=== PATIENT | male | born 1945 | race Caucasian/White ===

== ENCOUNTER → 2019-06-07 | Outpatient (CLI) | payer MEDICARE, BC ==
[2019-06-07 13:37] LABS: Albumin 4.2 g/dL (3.5-5.0); Calcium 9.3 mg/dL (8.4-10.2); Potassium 4.9 mmol/L (3.5-5.1); Total Bilirubin 0.6 mg/dL (0.2-1.3); Total Protein 7.9 g/dL (6.3-8.2)
--- NOTE | 2019-06-07 14:54 | CT ---
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 Contrast enhanced CT of the neck was performed from the skull base through the lung apices. AIRWAY: The supraglottic, glottic, and subglottic portions of the airway appear patent and free of mass. SALIVARY GLANDS: The submandibular and parotid glands are free of mass or inflammatory process. THYROID GLAND: No nodules or masses seen. LYMPH NODES: No adenopathy seen greater than 1cm. LUNG APICES: No nodule or mass is seen. OTHER: There is a skin lesion noted measuring 1.2 cm x .85 x 2.2 cm left facial region adjacent to th e upper pole of the parotid. There is subcutaneous extension without involvement of the parotid gland at this time. Vascular structures are patent. No significant degenerative change of the cervical sp ine. No abscess seen. IMPRESSION: There is a skin lesion noted measuring 1.2 cm x .85 x 2.2 cm left facial region adjacent to the upper pole of the parotid. There is subcutaneous extension without involvement of the parotid gland at thi s time. No additional lesions or adenopathy appreciated within the neck. EXAMINATION TYPE: CT neck chest w con DATE OF EXAM: 06/07/2019 COMPARISON: HISTORY: Malignant melanoma of unspecified part of face (right ear/left face) CT DLP: 1902 mGycm Automated exposure control for dose reduction was used. CONTRAST: CT scan of the chest is performed with IV Contrast, patient injected with 100 mL of Isovue 300. FINDINGS: LUNGS: The lungs are grossly clear, there is no concerning parenchymal mass or nodule identified. T here is no pleural effusion or pneumothorax seen. The tracheobronchial tree is patent. MEDIASTINUM: There are no greater than 1 cm hilar or mediastinal lymph nodes. No pericardial effusi on is seen. Thoracic aorta is of normal caliber. The heart is not enlarged. UPPER ABDOMEN: No significant abnormality appreciated. OTHER: No additional significant abnormality is seen. IMPRESSION: No evidence for metastatic disease to the chest.
== END | disposition home or self-care (01) ==
LOC: RADCTMAIN 12:41
PROVIDERS: ATTEND Otolaryngology Facial Plastic Surgery
DX: C43.39 Malignant melanoma of other parts of face (principal)
CPT/HCPCS: 80053; 70491; 71260; 36415; Q9967

== ENCOUNTER → 2019-06-30 | Outpatient (CLI) | payer MEDICARE, BC ==
--- NOTE | 2019-06-30 14:06 | CT ---
EXAMINATION TYPE: CT abdomen pelvis w con DATE OF EXAM: 06/30/2019 COMPARISON: None HISTORY: Melanoma of Lt cheek CT DLP: 2370.8 mGycm Automated exposure control for dose reduction was used. CONTRAST: CT scan of the abdomen pelvis is performed with IV Contrast, patient injected with 100 mL of Isovue 3 00. FINDINGS- LUNG BASES-linear changes at the lung bases most typical of scar or atelectasis. Coronary artery calc ification noted. LIVER/GB-there are multiple sub-5 mm hypodensities within the liver which are too small to characteri ze but most likely on the basis of simple cysts.. PANCREAS- No gross abnormality is seen. SPLEEN- No gross abnormality is seen. ADRENALS- No gross abnormality is seen. KIDNEYS/BLADDER- no hydronephrosis or nephrolithiasis. Simple appearing left renal cyst noted. BOWEL-there is an area of abnormal wall thickening involving the right colon near the hepatic flexure with surrounding pericolonic mild inflammatory change. Although this could represent a mild colitis could not exclude a mucosal lesion or mass. Recommend correlation with colonoscopy as clinically ervin anted. Report called to referring clinician and report faxed to referring office. LYMPH NODES- No greater than 1cm abdominal or pelvic lymph nodes areappreciated. OSSEOUS STRUCTURES-hypertrophic and degenerative changes of the spine. Sclerosis involving the left i liac bone near the SI joint likely related related to the SI joint arthropathy.. OTHER- prostate is enlarged. Aorta of normal caliber. Atherosclerotic change of the vasculature. IMPRESSION- 1. There is a area of wall thickening involving the right colon near the hepatic flexure with mild hanley rrounding inflammatory change in the pericolonic fat. This could represent a mild colitis. No definit e diverticula identified in the region. A colonic mass also in the differential diagnosis given the s hort segmental involvement. Correlate clinically and with direct visualization as clinically warrante d. 2. No evidence of pathologic adenopathy. 3. Multiple tiny hypodensities within the liver are too small to characterize but likely related to s imple cysts. 4. Prostate hypertrophy 5. Coronary artery atherosclerotic changes correlate clinically.
== END | disposition home or self-care (01) ==
LOC: RADCTMAIN 11:39
PROVIDERS: ATTEND Otolaryngology Facial Plastic Surgery
DX: N40.0 Benign prostatic hyperplasia without lower urinary tract symptoms (principal); C43.39 Malignant melanoma of other parts of face; C77.9 Secondary and unspecified malignant neoplasm of lymph node, unspecified; R93.3 Abnormal findings on diagnostic imaging of other parts of digestive tract; R93.2 Abnormal findings on diagnostic imaging of liver and biliary tract; R19.09 Other intra-abdominal and pelvic swelling, mass and lump
CPT/HCPCS: 82565; 84520; 74177; 36415; Q9967 ×2

== ENCOUNTER → 2019-07-01 | Outpatient (CLI) | payer MEDICARE, BC ==
--- NOTE | 2019-07-01 13:55 | MR ---
EXAMINATION TYPE: MR brain wo/w con DATE OF EXAM: 07/01/2019 COMPARISON: NONE HISTORY: Neoplasm, lt facial and rt ear TECHNIQUE: Multiplanar, multisequence images of the brain and brainstem is performed without and with IV contras t, utilizing 10 mL intravenous Gadavist . FINDINGS: Patient motion limits examination. Diffusion weighted images demonstrate no evidence of a r ecent infarct or other diffusion abnormality. There are few scattered foci of T2/FLAIR hyperintensity in the periventricular and subcortical white matter most commonly on the basis of chronic microangio ioana. As is mild burden for the patient's age. There is no extra-axial fluid . The ventricular syst em and cisternal spaces are symmetrically prominent compatible with age-related volume loss. Midline structures demonstrate normal morphology. The craniocervical junction appears within normal limits. Post contrast images demonstrate no abnormal enhancement. The dural venous sinuses appear pa tent. The visualized sinuses are clear and the globes are intact. IMPRESSION: 1. No acute infarct, midline shift or mass effect. No abnormal intracranial enhancement. 2. Mild burden nonspecific white matter change, likely on the basis of chronic microangiopathy and mi ld age-related volume loss.
== END | disposition home or self-care (01) ==
LOC: RADMRIMAIN 12:07
PROVIDERS: ATTEND Otolaryngology Facial Plastic Surgery
DX: R90.89 Other abnormal findings on diagnostic imaging of central nervous system (principal); G31.1 Senile degeneration of brain, not elsewhere classified; C43.39 Malignant melanoma of other parts of face
CPT/HCPCS: 70553; A9585

== ENCOUNTER 2019-07-15 08:20 | Inpatient (IN) | payer MEDICARE, BC ==
[~2019-07-15 08:20] MED LIST: HYDROmorphone 0.5 MG/0.5 ML SYRINGE IVP PRN; LIDOCAINE 1% (10MG/ML) FOR IV START INTRADERMA PRN
[2019-07-15] MEDS: LACTATED RINGERS 1,000 ML IV SCH ×2 (08:50→12:13)
[2019-07-15 08:52] LABS: Glucose,Whole Blood 231 mg/dL (75-99)
[2019-07-15] MEDS ORDERED: PROPOFOL 10 MG/ML 20 ML VIAL IV ONE (09:22)
--- NOTE | 2019-07-15 09:23 | P.GSHP ---
History of Present Illness H&P Date: 07/15/19 Chief Complaint: Right colon mass This a 73-year-old male who is undergoing colonoscopy for right colon mass. Patient recent CAT scan which was suspicious lesion near the hepatic flexure. Past Medical History Past Medical History: Cancer, CVA/TIA, Hearing Disorder / Deafness, Hypertension Additional Past Medical History / Comment(s): MELENOMA, "BLOOD CANCER" History of Any Multi-Drug Resistant Organisms: None Reported Past Surgical History: Cholecystectomy, Joint Replacement Additional Past Surgical History / Comment(s): MELENOMA FROM RIGHT EAR AND LEFT CHEEK, RIGHT AND LEFT TOTAL KNEE, BILATERAL CATARACT WITH IMPLANTS Past Anesthesia/Blood Transfusion Reactions: No Reported Reaction Smoking Status: Never smoker - Past Family History Mother Family Medical History: Cancer Medications and Allergies Home Medications Medication Instructions Recorded Confirmed Type Aspirin 81 mg PO DAILY 07/14/19 07/15/19 History Lisinopril [Zestril] 40 mg PO DAILY 07/14/19 07/15/19 History QUEtiapine FUMARATE 50 mg PO HS 07/14/19 07/15/19 History amLODIPine [Norvasc] 5 mg PO DAILY 07/14/19 07/15/19 History glyBURIDE [Diabeta] 10 mg PO AC-BID 07/14/19 07/15/19 History metFORMIN HCL 1,000 mg PO BID 07/14/19 07/15/19 History sitaGLIPtin [Januvia] 100 mg PO DAILY 07/14/19 07/15/19 History Allergies Allergy/AdvReac Type Severity Reaction Status Date / Time No Known Allergies Allergy Verified 07/15/19 08:39 Surgical - Exam Vital Signs Temp Pulse Resp BP Pulse Ox 96.7 F L 98 16 126/68 94 L 07/15/19 08:40 07/15/19 08:40 07/15/19 08:40 07/15/19 08:40 07/15/19 08:40 - General well developed, well nourished - Eyes PERRL - ENT normal pinna - Neck no masses - Respiratory normal expansion - Cardiovascular Rhythm: regular - Abdomen Abdomen: soft, non tender Results - Labs Abnormal Lab Results - Last 24 Hours (Table) 07/15/19 Range/Units 08:44 POC Glucose (mg/dL) 231 H (75-99) mg/dL Assessment and Plan Assessment: Right colon mass. We'll perform colonoscopy
--- NOTE | 2019-07-15 09:42 | P.OP ---
Date of Procedure: 07/15/19 Preoperative Diagnosis: Right colon mass Postoperative Diagnosis: Partial obstructing tumor at hepatic flexure Procedure(s) Performed: Colonoscopy Anesthesia: MAC Surgeon: Jeremy Hernandez Pathology: other (Hepatic flexure) Condition: stable Disposition: PACU Description of Procedure: The patient's placed on the endoscopy table in the lateral position. He received IV sedation. Digital rectal exam was performed. The flexible colonoscope was then placed patient anus and passed throughout the entire colon. The ileocecal valve sutures. Cecum appeared normal. There is a few scattered diverticula in the right colon. At the level hepatic flexure there was a obvious colon tumor. Patient had a very hard mass was partially obstructing the lumen of the colon. The mass was hemorrhagic and was biopsied with the cold forcep. Scope was withdrawn remainder of the transverse, descending and sigmoid colon appeared normal. The rectum was normal. Scope was brought patient. Hepatic flexure mass. Patient will be scheduled for right colectomy
[2019-07-15] MEDS ORDERED: LACTATED RINGERS 1,000 ML IV ONE (10:00)
[2019-07-15] MEDS ORDERED: NALOXONE 0.4 MG/ML 1 ML VIAL IV PRN (10:00)
[2019-07-15 11:38] LABS: Glucose,Whole Blood 206 mg/dL (75-99)
--- NOTE | 2019-07-15 11:58 | P.CONS ---
History of Present Illness - Reason for Consult Preoperative clearance, recommendations regarding diabetic medications - History of Present Illness Patient is a pleasant 72-year-old gentleman came in for elective colonoscopy found to have a cancerous mass the hepatic flexure patient will undergo colectomy tomorrow. Patient denied any fever chills nausea vomiting patient denied any smoking history patient does have history of other cancers including melanoma in the past patient denied any chest pain patient denied any history of heart failure or coronary artery disease. Obtaining an EKG for preoperative clearance. Review of Systems REVIEW OF SYSTEMS: CONSTITUTIONAL: No fever, no malaise, no fatigue. HEENT: No recent visual problems or hearing problems. Denied any sore throat. CARDIOVASCULAR: No chest pain, orthopnea, PND, no palpitations, no syncope. PULMONARY: No shortness of breath, no cough, no hemoptysis. GASTROINTESTINAL: No diarrhea, no nausea, no vomiting, no abdominal pain. NEUROLOGICAL: No headaches, no weakness, no numbness. HEMATOLOGICAL: Denies any bleeding or petechiae. GENITOURINARY: Denies any burning micturition, frequency, or urgency. MUSCULOSKELETAL/RHEUMATOLOGICAL: Denies any joint pain, swelling, or any muscle pain. ENDOCRINE: Denies any polyuria or polydipsia. The rest of the 14-point review of systems is negative. Past Medical History Past Medical History: Cancer, CVA/TIA, Hearing Disorder / Deafness, Hypertension Additional Past Medical History / Comment(s): MELENOMA, "BLOOD CANCER" History of Any Multi-Drug Resistant Organisms: None Reported Past Surgical History: Cholecystectomy, Joint Replacement Additional Past Surgical History / Comment(s): MELENOMA FROM RIGHT EAR AND LEFT CHEEK, RIGHT AND LEFT TOTAL KNEE, BILATERAL CATARACT WITH IMPLANTS Past Anesthesia/Blood Transfusion Reactions: No Reported Reaction Smoking Status: Never smoker - Past Family History Mother Family Medical History: Cancer Medications and Allergies Home Medications Medication Instructions Recorded Confirmed Type Aspirin 81 mg PO DAILY 07/14/19 07/15/19 History Lisinopril [Zestril] 40 mg PO DAILY 07/14/19 07/15/19 History QUEtiapine FUMARATE 50 mg PO HS 07/14/19 07/15/19 History amLODIPine [Norvasc] 5 mg PO DAILY 07/14/19 07/15/19 History glyBURIDE [Diabeta] 10 mg PO AC-BID 07/14/19 07/15/19 History metFORMIN HCL 1,000 mg PO BID 07/14/19 07/15/19 History sitaGLIPtin [Januvia] 100 mg PO DAILY 07/14/19 07/15/19 History Allergies Allergy/AdvReac Type Severity Reaction Status Date / Time No Known Allergies Allergy Verified 07/15/19 08:39 Physical Exam Vitals: Vital Signs Temp Pulse Resp BP Pulse Ox 07/15/19 10:06 97 16 131/73 97 07/15/19 09:45 92 16 93/57 94 L 07/15/19 08:40 96.7 F L 98 16 126/68 94 L Intake and Output 07/14/19 07/15/19 07/15/19 22:59 06:59 14:59 Intake Total 300 Balance 300 Intake: IV 300 Other: Weight 100 kg PHYSICAL EXAMINATION: GENERAL: The patient is alert and oriented x3, not in any acute distress. Well d eveloped, well nourished. HEENT: Pupils are round and equally reacting to light. EOMI. No scleral icterus. No conjunctival pallor. Normocephalic, atraumatic. No pharyngeal erythema. No thyromegaly. CARDIOVASCULAR: S1 and S2 present. No murmurs, rubs, or gallops. PULMONARY: Chest is clear to auscultation, no wheezing or crackles. ABDOMEN: Soft, nontender, nondistended, normoactive bowel sounds. No palpable organomegaly. MUSCULOSKELETAL: No joint swelling or deformity. EXTREMITIES: No cyanosis, clubbing, or pedal edema. NEUROLOGICAL: Gross neurological examination did not reveal any focal deficits. SKIN: No rashes. Results Labs: Abnormal Lab Results - Last 24 Hours (Table) 07/15/19 07/15/19 Range/Units 08:44 11:37 POC Glucose (mg/dL) 231 H 206 H (75-99) mg/dL Assessment and Plan Plan: -Preoperative clearance: Patient is low operative risk for colectomy. Recent benefits were discussed with the patient -Type 2 diabetes mellitus patient's metformin and sulfonylurea will be discontinued rest of the oral hypoglycemic agents will be continued along with sliding scale -Hypertension to prevent perioperative hypotension and hold off on lisinopril although amlodipine will be continued. -TIA in the past -Colonic mass for which patient will undergo colectomy tomorrow -History of melanoma
[2019-07-15] MEDS: INSULIN ASPART (NovoLOG) 100 UNIT/ML VIAL SQ SCH ×3 (12:52→20:25)
[2019-07-15 16:39] LABS: Glucose,Whole Blood 226 mg/dL (75-99)
[2019-07-15 20:20] LABS: Glucose,Whole Blood 259 mg/dL (75-99)
[2019-07-15] MEDS: QUEtiapine 50 MG TAB PO SCH (21:28)
[2019-07-16 07:04] LABS: Glucose,Whole Blood 194 mg/dL (75-99)
[2019-07-16 07:44] LABS: Basophils % (A) 0 %; Eosinophils # (A) 0.1 k/uL (0-0.7); Eosinophils % (A) 1 %; HCT 38.6 % (39.0-53.0); HGB 12.6 gm/dL (13.0-17.5); Lymphocytes # (A) 0.8 k/uL (1.0-4.8); Lymphocytes % (A) 10 %; MCH 28.8 pg (25.0-35.0); MCHC 32.6 g/dL (31.0-37.0); MCV 88.3 fL (80.0-100.0); Mean Platelet Volume 6.8; Monocytes # (A) 0.5 k/uL (0-1.0); Monocytes % (A) 7 %; Neutrophils # (A) 5.9 k/uL (1.3-7.7); Neutrophils % (A) 80 %; Platelet Count 222 k/uL (150-450); RBC 4.37 m/uL (4.30-5.90); RDW 14.5 % (11.5-15.5); WBC 7.3 k/uL (3.8-10.6)
[2019-07-16 07:56] LABS: Albumin 3.8 g/dL (3.5-5.0); Potassium 4.7 mmol/L (3.5-5.1); Total Bilirubin 0.7 mg/dL (0.2-1.3); Total Protein 7.3 g/dL (6.3-8.2)
[2019-07-16] MEDS: INSULIN ASPART (NovoLOG) 100 UNIT/ML VIAL SQ SCH ×4 (08:43→20:29)
[2019-07-16] MEDS ORDERED: LISINOPRIL 20 MG TAB PO SCH (09:00)
[2019-07-16] MEDS: amLODIPine 5 MG TAB PO SCH (09:31)
[2019-07-16] MEDS: ASPIRIN 81 MG PO SCH (09:31)
[2019-07-16] MEDS: LINAGLIPTIN 5 MG TABLET PO SCH (09:31)
[2019-07-16] MEDS ORDERED: IV FLUID CONTINUATION 1,000 ML IV ONE (10:50)
[2019-07-16 11:21] LABS: Glucose,Whole Blood 217 mg/dL (75-99)
[2019-07-16] MEDS ORDERED: INSULIN ASPART (NovoLOG) 100 UNIT/ML VIAL SQ ONE ×2 (11:28→14:46)
--- NOTE | 2019-07-16 11:56 | P.PN ---
Subjective No overnight events patient is clinically doing well patient will undergo colectomy today his blood pressures well controlled. Constitutional: Denied any fatigue denied any fever. Cardio vascular: denied any chest pain, palpitations Gastrointestinal denied any nausea vomiting Pulmonary: Denied any shortness of breath cough Neurologic denied any new focal deficits All inpatient medications were reviewed and appropriate changes in these medications as dictated in the interval history and assessment and plan. Objective - Vital Signs Vital signs: Vital Signs Temp 97.8 F 07/16/19 10:51 Pulse 85 07/16/19 10:51 Resp 18 07/16/19 10:51 BP 120/65 07/16/19 10:51 Pulse Ox 96 07/16/19 10:51 Intake & Output 07/15/19 07/16/19 07/16/19 18:59 06:59 18:59 Intake Total 600 Balance 600 Weight 100 kg Intake: IV 300 Intake, IV Titration 300 Amount Lactated Ringers 1,000 ml 300 @ 100 mls/hr IV .Q10H ONE Rx#:[id number] Other: Voiding Method Toilet # Voids 1 - Exam PHYSICAL EXAMINATION: GENERAL: The patient is alert and oriented x3, not in any acute distress. Well developed, well nourished. HEENT: Pupils are round and equally reacting to light. EOMI. No scleral icterus. No conjunctival pallor. Normocephalic, atraumatic. No pharyngeal erythema. No thyromegaly. CARDIOVASCULAR: S1 and S2 present. No murmurs, rubs, or gallops. PULMONARY: Chest is clear to auscultation, no wheezing or crackles. ABDOMEN: Soft, nontender, nondistended, normoactive bowel sounds. No palpable organomegaly. MUSCULOSKELETAL: No joint swelling or deformity. EXTREMITIES: No cyanosis, clubbing, or pedal edema. NEUROLOGICAL: Gross neurological examination did not reveal any focal deficits. SKIN: No rashes. - Labs CBC & Chem 7: 07/16/19 06:37 07/16/19 06:37 Labs: Abnormal Lab Results - Last 24 Hours (Table) 07/15/19 07/15/19 07/16/19 Range/Units 16:38 20:18 06:37 Hgb 12.6 L (13.0-17.5) gm/dL Hct 38.6 L (39.0-53.0) % Lymphocytes # 0.8 L (1.0-4.8) k/uL Sodium (137-145) mmol/L Glucose (74-99) mg/dL POC Glucose (mg/dL) 226 H 259 H (75-99) mg/dL AST (17-59) U/L 07/16/19 07/16/19 07/16/19 Range/Units 06:37 07:02 11:20 Hgb (13.0-17.5) gm/dL Hct (39.0-53.0) % Lymphocytes # (1.0-4.8) k/uL Sodium 136 L (137-145) mmol/L Glucose 188 H (74-99) mg/dL POC Glucose (mg/dL) 194 H 217 H (75-99) mg/dL AST 15 L (17-59) U/L Assessment and Plan Plan: -Preoperative clearance: Patient is low operative risk for colectomy. Recent benefits were discussed with the patient patient is undergoing colectomy today -Type 2 diabetes mellitus patient's metformin and sulfonylurea will be discontinued rest of the oral hypoglycemic agents will be continued along with sliding scale -Hypertension to prevent perioperative hypotension and hold off on lisinopril although amlodipine will be continued. A she is well-controlled -TIA in the past -Colonic mass for which patient will undergo colectomy tomorrow -History of melanoma
[2019-07-16] MEDS ORDERED: NEOSTIGMINE 1 MG/ML 10 ML VIAL ONE (12:13)
[2019-07-16] MEDS ORDERED: SUCCINYLCHOLINE CHLORIDE 100 MG/5 ML SYR IV ONE (12:13)
[2019-07-16] MEDS ORDERED: LIDOCAINE 1% INJ 10MG/ML (20 ML MDV) ONE (12:13)
[2019-07-16] MEDS ORDERED: MIDAZOLAM 2 MG/2 ML VIAL ONE (12:13)
[2019-07-16] MEDS ORDERED: HYDROmorphone (PF) 1 MG/ML ONE (12:13)
[2019-07-16] MEDS ORDERED: fentaNYL (PF) 50 MCG/ML 2 ML AMP ONE (12:13)
[2019-07-16] MEDS ORDERED: PROPOFOL 10 MG/ML 20 ML VIAL IV ONE (12:13)
[2019-07-16] MEDS ORDERED: ROCURONIUM BROMIDE 10 MG/ML 5 ML VIAL IV ONE (12:13)
[2019-07-16] MEDS ORDERED: GLYCOPYRROLATE 0.2 MG/ML 2 ML VIAL ONE (12:13)
[2019-07-16] MEDS ORDERED: BUPIVACAIN-EPI 0.25%-1:200,000 30 ML VIAL SQ ONE (12:18)
[2019-07-16] MEDS ORDERED: ceFAZolin 1,000 MG VIAL IVPB ONE (12:18)
[2019-07-16] MEDS ORDERED: LACTATED RINGERS 1,000 ML IV ONE (12:50)
[2019-07-16] MEDS ORDERED: ROPIVACAINE 250 MG, fentaNYL (PF) 1,250 MCG in SODIUM CHLORIDE 0.9% 175 ML EPIDURAL PRN (13:10)
[2019-07-16] MEDS ORDERED: NALOXONE 0.4 MG/ML 1 ML VIAL IV PRN (13:10)
--- NOTE | 2019-07-16 13:17 | P.ANPRN ---
Procedure Note - Anesthesia - Epidural/Spinal Epidural Time Out Performed: Yes Date of Procedure: 07/16/19 Procedure Start Time: 11:24 Procedure Stop Time: 11:40 Location of Patient: PreOp Indication: Acute Post-Operative Pain, Requested by Surgeon Sedation Type: Awake Preparation: Sterile Dressing Number of Attempts: 3 Position: Sitting Catheter Depth at Skin (cm): 6 Catheter: Indwelling Needle Guage: 18 Injectate: Other (will test after surgery) Blood Aspirated: No Pain Paresthesia on Injection Noted: No Events: Uneventful and Well Tolerated
[2019-07-16] MEDS ORDERED: METOCLOPRAMIDE 5 MG/ML 2 ML VIAL IVP PRN (13:47)
[2019-07-16 13:53] LABS: Glucose,Whole Blood 228 mg/dL (75-99)
[2019-07-16] MEDS ORDERED: D5-0.45% NACL WITH KCL 20MEQ/L 1,000 ML IV SCH (14:00)
[2019-07-16] MEDS ORDERED: HYDROmorphone 0.5 MG/0.5 ML SYRINGE IVP ONE (14:06)
[2019-07-16] MEDS ORDERED: HYDROmorphone 1 MG/ML 1 ML SYRINGE IVP ONE (14:11)
[2019-07-16] MEDS ORDERED: diphenhydrAMINE 50 MG/ML 1 ML VIAL IVP ONE (14:16)
[2019-07-16] MEDS: LACTATED RINGERS 1,000 ML IV SCH (15:29)
[2019-07-16] MEDS: HEPARIN SODIUM,PORCINE 5,000 UNIT/ML 1 ML VIAL SQ SCH ×2 (15:59→23:52)
[2019-07-16 16:08] LABS: Basophils % (A) 0 %; Eosinophils # (A) 0.1 k/uL (0-0.7); Eosinophils % (A) 0 %; HCT 33.3 % (39.0-53.0); HGB 10.8 gm/dL (13.0-17.5); Lymphocytes # (A) 0.5 k/uL (1.0-4.8); Lymphocytes % (A) 3 %; MCH 29.5 pg (25.0-35.0); MCHC 32.3 g/dL (31.0-37.0); MCV 91.2 fL (80.0-100.0); Mean Platelet Volume 6.9; Monocytes # (A) 0.6 k/uL (0-1.0); Monocytes % (A) 4 %; Neutrophils # (A) 13.8 k/uL (1.3-7.7); Neutrophils % (A) 92 %; Platelet Count 243 k/uL (150-450); RBC 3.66 m/uL (4.30-5.90); RDW 14.5 % (11.5-15.5); WBC 15.1 k/uL (3.8-10.6)
[2019-07-16 16:19] LABS: Calcium 8.3 mg/dL (8.4-10.2); Potassium 4.7 mmol/L (3.5-5.1)
[2019-07-16 17:04] LABS: Glucose,Whole Blood 273 mg/dL (75-99)
[2019-07-16 19:54] LABS: Glucose,Whole Blood 323 mg/dL (75-99)
[2019-07-16] MEDS: FAMOTIDINE 20 MG/2 ML VIAL IV SCH (20:29)
[2019-07-16] MEDS: QUEtiapine 50 MG TAB PO SCH (20:30)
[2019-07-16] MEDS ORDERED: SODIUM CHLORIDE 0.9% 1,000 ML IV SCH (20:30)
[2019-07-17 00:23] LABS: Glucose,Whole Blood 242 mg/dL (75-99)
[2019-07-17 01:36] LABS: HCT 29.9 % (39.0-53.0); MCH 29.9 pg (25.0-35.0); MCHC 33.4 g/dL (31.0-37.0); MCV 89.4 fL (80.0-100.0); Mean Platelet Volume 6.8; Platelet Count 230 k/uL (150-450); RBC 3.35 m/uL (4.30-5.90); RDW 14.5 % (11.5-15.5); WBC 21.2 k/uL (3.8-10.6)
[2019-07-17 07:03] LABS: Glucose,Whole Blood 218 mg/dL (75-99)
[2019-07-17] MEDS ORDERED: LACTATED RINGERS 1,000 ML IV ONE (08:15)
[2019-07-17] MEDS ORDERED: LACTATED RINGERS 1,000 ML IV SCH (08:15)
[2019-07-17] MEDS: FAMOTIDINE 20 MG/2 ML VIAL IV SCH ×2 (08:55→20:20)
[2019-07-17] MEDS: ASPIRIN 81 MG PO SCH (08:55)
[2019-07-17] MEDS: HEPARIN SODIUM,PORCINE 5,000 UNIT/ML 1 ML VIAL SQ SCH ×3 (08:55→23:13)
[2019-07-17] MEDS: INSULIN ASPART (NovoLOG) 100 UNIT/ML VIAL SQ SCH ×4 (08:56→20:19)
[2019-07-17] MEDS: ALVIMOPAN 12 MG CAPSULE PO SCH ×2 (08:56→20:19)
[2019-07-17] MEDS: LINAGLIPTIN 5 MG TABLET PO SCH (08:56)
--- NOTE | 2019-07-17 09:58 | P.PN ---
Progress Note - Text Progress Note Date: 07/17/19 The patient is resting comfortably his bed. He denies any significant pain. He did develop some mild hypotension and decreased urine output overnight. On exam his vital signs are stable. His blood pressures in the 110 range. He has no significant complaints of pain. Abdomen soft. Incision site is clean dry tach. Status post right colectomy for large right colon cancer. Patient's hemoglobin is pending from this morning. His last hemoglobin was 10.0. Patient is receiving fluid bolus this morning. His epidural has been turned off currently. He'll continue have supportive care.
[2019-07-17 11:32] LABS: Glucose,Whole Blood 280 mg/dL (75-99)
[2019-07-17 12:50] LABS: Basophils % (A) 0 %; Eosinophils % (A) 0 %; HCT 29.1 % (39.0-53.0); HGB 9.4 gm/dL (13.0-17.5); Lymphocytes # (A) 0.3 k/uL (1.0-4.8); Lymphocytes % (A) 2 %; MCHC 32.2 g/dL (31.0-37.0); MCV 90.1 fL (80.0-100.0); Mean Platelet Volume 7.4; Monocytes # (A) 0.5 k/uL (0-1.0); Monocytes % (A) 4 %; Neutrophils # (A) 13.4 k/uL (1.3-7.7); Neutrophils % (A) 93 %; Platelet Count 198 k/uL (150-450); RBC 3.23 m/uL (4.30-5.90); RDW 14.5 % (11.5-15.5); WBC 14.4 k/uL (3.8-10.6)
[2019-07-17 12:58] LABS: Albumin 2.7 g/dL (3.5-5.0); Calcium 7.7 mg/dL (8.4-10.2); Potassium 5.2 mmol/L (3.5-5.1); Total Bilirubin 0.7 mg/dL (0.2-1.3); Total Protein 5.6 g/dL (6.3-8.2)
[2019-07-17] MEDS: amLODIPine 5 MG TAB PO SCH (13:12)
--- NOTE | 2019-07-17 14:27 | P.PN ---
Subjective No overnight events patient is clinically doing well patient will undergo colectomy today his blood pressures well controlled. 07/17/2019 Patient is status post right-sided hemicolectomy. Biopsy results are pending. Patient has colon cancer. Patient is bit hypotensive leading to acute renal failure patient is receiving lactated Ringer's which will be changed to normal saline because of hyperkalemia. His blood sugars are elevated as well continue to monitor and patient will be started on long-acting insulin or glyburide. Everything was discontinued because of hypotension leading to acute renal failure Constitutional: Denied any fatigue denied any fever. Cardio vascular: denied any chest pain, palpitations Gastrointestinal denied any nausea vomiting Pulmonary: Denied any shortness of breath cough Neurologic denied any new focal deficits All inpatient medications were reviewed and appropriate changes in these medications as dictated in the interval history and assessment and plan. Objective - Vital Signs Vital signs: Vital Signs Temp 99.9 F H 07/17/19 05:00 Pulse 127 H 07/17/19 13:06 Resp 16 07/17/19 13:06 BP 111/63 07/17/19 13:06 Pulse Ox 97 07/17/19 13:06 Intake & Output 07/16/19 07/17/19 07/17/19 18:59 06:59 18:59 Intake Total 1800 500 500 Output Total 500 200 50 Balance 1300 300 450 Intake: IV 1800 500 500 Sodium Chloride 0.9% 1, 500 500 000 ml @ 100 mls/hr IV . Q10H [facility] Rx#:[id number] Output: Urine 200 200 50 Estimated Blood Loss 300 Other: Voiding Method Indwelling Catheter Indwelling Catheter - Exam PHYSICAL EXAMINATION: GENERAL: The patient is alert and oriented x3, not in any acute distress. Well developed, well nourished. HEENT: Pupils are round and equally reacting to light. EOMI. No scleral icterus. No conjunctival pallor. Normocephalic, atraumatic. No pharyngeal erythema. No thyromegaly. CARDIOVASCULAR: S1 and S2 present. No murmurs, rubs, or gallops. PULMONARY: Chest is clear to auscultation, no wheezing or crackles. ABDOMEN: Soft, nontender, nondistended, normoactive bowel sounds. No palpable organomegaly. MUSCULOSKELETAL: No joint swelling or deformity. EXTREMITIES: No cyanosis, clubbing, or pedal edema. NEUROLOGICAL: Gross neurological examination did not reveal any focal deficits. SKIN: No rashes. - Labs CBC & Chem 7: 07/17/19 12:34 07/17/19 12:34 Labs: Abnormal Lab Results - Last 24 Hours (Table) 07/16/19 07/16/19 07/16/19 Range/Units 15:45 15:45 17:02 WBC 15.1 H (3.8-10.6) k/uL RBC 3.66 L (4.30-5.90) m/uL Hgb 10.8 L (13.0-17.5) gm/dL Hct 33.3 L (39.0-53.0) % Neutrophils # 13.8 H (1.3-7.7) k/uL Lymphocytes # 0.5 L (1.0-4.8) k/uL Sodium 134 L (137-145) mmol/L Potassium (3.5-5.1) mmol/L Creatinine (0.66-1.25) mg/dL Glucose 233 H (74-99) mg/dL POC Glucose (mg/dL) 273 H (75-99) mg/dL Calcium 8.3 L (8.4-10.2) mg/dL Total Protein (6.3-8.2) g/dL Albumin (3.5-5.0) g/dL 07/16/19 07/17/19 07/17/19 Range/Units 19:49 00:22 01:01 WBC 21.2 H (3.8-10.6) k/uL RBC 3.35 L (4.30-5.90) m/uL Hgb 10.0 L (13.0-17.5) gm/dL Hct 29.9 L (39.0-53.0) % Neutrophils # (1.3-7.7) k/uL Lymphocytes # (1.0-4.8) k/uL Sodium (137-145) mmol/L Potassium (3.5-5.1) mmol/L Creatinine (0.66-1.25) mg/dL Glucose (74-99) mg/dL POC Glucose (mg/dL) 323 H 242 H (75-99) mg/dL Calcium (8.4-10.2) mg/dL Total Protein (6.3-8.2) g/dL Albumin (3.5-5.0) g/dL 07/17/19 07/17/19 07/17/19 Range/Units 07:01 11:30 12:34 WBC 14.4 H (3.8-10.6) k/uL RBC 3.23 L (4.30-5.90) m/uL Hgb 9.4 L (13.0-17.5) gm/dL Hct 29.1 L (39.0-53.0) % Neutrophils # 13.4 H (1.3-7.7) k/uL Lymphocytes # 0.3 L (1.0-4.8) k/uL Sodium (137-145) mmol/L Potassium (3.5-5.1) mmol/L Creatinine (0.66-1.25) mg/dL Glucose (74-99) mg/dL POC Glucose (mg/dL) 218 H 280 H (75-99) mg/dL Calcium (8.4-10.2) mg/dL Total Protein (6.3-8.2) g/dL Albumin (3.5-5.0) g/dL 07/17/19 Range/Units 12:34 WBC (3.8-10.6) k/uL RBC (4.30-5.90) m/uL Hgb (13.0-17.5) gm/dL Hct (39.0-53.0) % Neutrophils # (1.3-7.7) k/uL Lymphocytes # (1.0-4.8) k/uL Sodium 136 L (137-145) mmol/L Potassium 5.2 H (3.5-5.1) mmol/L Creatinine 1.84 H (0.66-1.25) mg/dL Glucose 312 H (74-99) mg/dL POC Glucose (mg/dL) (75-99) mg/dL Calcium 7.7 L (8.4-10.2) mg/dL Total Protein 5.6 L (6.3-8.2) g/dL Albumin 2.7 L (3.5-5.0) g/dL Assessment and Plan Plan: --Acute renal failure: Secondary to hypotension and prerenal azotemia from hypotension. Patient will be started on IV normal saline discontinue lactated Ringer's because of hyperkalemia as mentioned above -Hyperkalemia secondary to acute renal failure and lactated Ringer's -Colon cancer status post right colectomy -Type 2 diabetes mellitus uncontrolled blood sugars continue with present regimen along with restarting on glyburide along with sliding scale insulin -Hypertension holding of antidepressant medications seconded to perioperative hypotension which is expected holding off on KRISTA inhibitor as well as amlodipine. -TIA in the past -Colonic mass for which patient will undergo colectomy tomorrow -History of melanoma
[2019-07-17] MEDS: SODIUM CHLORIDE 0.9% 1,000 ML IV SCH ×2 (14:47→20:20)
[2019-07-17 16:52] LABS: Glucose,Whole Blood 364 mg/dL (75-99)
[2019-07-17] MEDS: glipiZIDE 10 MG TAB PO SCH (17:42)
[2019-07-17] MEDS: BENZOCAINE/MENTHOL LOZENG 1 EACH LOZENGE MUCOUS MEM PRN (20:11)
[2019-07-17 20:12] LABS: Glucose,Whole Blood 290 mg/dL (75-99)
[2019-07-17] MEDS: QUEtiapine 50 MG TAB PO SCH (20:19)
[2019-07-18] MEDS: BENZOCAINE/MENTHOL LOZENG 1 EACH LOZENGE MUCOUS MEM PRN (03:33)
[2019-07-18] MEDS: SODIUM CHLORIDE 0.9% 1,000 ML IV SCH ×3 (03:34→20:43)
[2019-07-18] MEDS: ONDANSETRON 4 MG/2 ML VIAL IVP PRN (05:14)
[2019-07-18 06:15] LABS: Basophils % (A) 0 %; Eosinophils % (A) 0 %; HGB 9.9 gm/dL (13.0-17.5); Lymphocytes # (A) 0.2 k/uL (1.0-4.8); Lymphocytes % (A) 1 %; MCH 30.3 pg (25.0-35.0); MCHC 34.2 g/dL (31.0-37.0); MCV 88.6 fL (80.0-100.0); Mean Platelet Volume 6.7; Monocytes # (A) 0.4 k/uL (0-1.0); Monocytes % (A) 3 %; Neutrophils # (A) 12.6 k/uL (1.3-7.7); Neutrophils % (A) 95 %; Platelet Count 216 k/uL (150-450); RBC 3.28 m/uL (4.30-5.90); RDW 14.4 % (11.5-15.5); WBC 13.2 k/uL (3.8-10.6)
[2019-07-18 06:27] LABS: Calcium 8.1 mg/dL (8.4-10.2); Potassium 4.5 mmol/L (3.5-5.1)
[2019-07-18 07:12] LABS: Glucose,Whole Blood 280 mg/dL (75-99)
[2019-07-18] MEDS: glipiZIDE 10 MG TAB PO SCH ×2 (08:14→17:44)
[2019-07-18] MEDS: HEPARIN SODIUM,PORCINE 5,000 UNIT/ML 1 ML VIAL SQ SCH ×3 (08:14→23:39)
[2019-07-18] MEDS: ASPIRIN 81 MG PO SCH (08:14)
[2019-07-18] MEDS: ALVIMOPAN 12 MG CAPSULE PO SCH ×2 (08:14→20:42)
[2019-07-18] MEDS: LINAGLIPTIN 5 MG TABLET PO SCH (08:14)
[2019-07-18] MEDS: FAMOTIDINE 20 MG/2 ML VIAL IV SCH ×2 (08:15→20:43)
[2019-07-18] MEDS: INSULIN ASPART (NovoLOG) 100 UNIT/ML VIAL SQ SCH ×4 (08:15→20:42)
[2019-07-18 11:07] LABS: Glucose,Whole Blood 315 mg/dL (75-99)
--- NOTE | 2019-07-18 11:09 | P.PN ---
Progress Note - Text Progress Note Date: 07/18/19 The patient's clinical condition has improved from yesterday. He has had good urine output. He is less tachycardic. His abdominal pain has improved. On exam his vital signs appear stable. Patient still has tachycardia in the 110 range. He has had good urine output. The urine is much clearer today. His abdomen is soft. Incision site is clean dry intact. There is no significant bowel sounds. Status post right colectomy. Patient's dehydration has been treated. He'll continue clear liquid diet. We'll advance his diet once his bowel function has returned.
--- NOTE | 2019-07-18 13:41 | XR ---
EXAMINATION TYPE: XR chest 1V DATE OF EXAM: 07/18/2019 HISTORY: sob. REFERENCE: Previous study dated 01/24/2011. FINDINGS: The heart is enlarged. The lungs are clear. Pleural spaces are clear. IMPRESSION: CARDIOMEGALY.
--- NOTE | 2019-07-18 14:18 | P.PN ---
Subjective No overnight events patient is clinically doing well patient will undergo colectomy today his blood pressures well controlled. 07/17/2019 Patient is status post right-sided hemicolectomy. Biopsy results are pending. Patient has colon cancer. Patient is bit hypotensive leading to acute renal failure patient is receiving lactated Ringer's which will be changed to normal saline because of hyperkalemia. His blood sugars are elevated as well continue to monitor and patient will be started on long-acting insulin or glyburide. Everything was discontinued because of hypotension leading to acute renal failure 07/18/2019 Patient's blood sugars are very high long-acting insulin will be added to his regimen, and is passing gas did not move his bowels yet. 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 Patient need to be fluid restricted although will continue with IV fluids as patient is still tachycardic patient will be started on metoprolol and I'll order a d-dimer TSH and a chest x-ray further management depending on these tests. Constitutional: Denied any fatigue denied any fever. Cardio vascular: denied any chest pain, palpitations Gastrointestinal denied any nausea vomiting Pulmonary: Denied any shortness of breath cough Neurologic denied any new focal deficits All inpatient medications were reviewed and appropriate changes in these medications as dictated in the interval history and assessment and plan. Objective - Vital Signs Vital signs: Vital Signs Temp 98.2 F 07/18/19 11:04 Pulse 135 H 07/18/19 11:04 Resp 18 07/18/19 11:04 BP 115/63 07/18/19 11:04 Pulse Ox 94 L 07/18/19 11:04 Intake & Output 07/17/19 07/18/19 07/18/19 18:59 06:59 18:59 Intake Total 500 375 Output Total 1025 1800 Balance -525 -1425 Intake: IV 500 375 Sodium Chloride 0.9% 1, 500 375 000 ml @ 100 mls/hr IV . Q10H [facility] Rx#:[id number] Output: Urine 1025 1800 Uretheral (Lang) 800 Other: Voiding Method Indwelling Catheter Indwelling Catheter # Voids 1 - Exam PHYSICAL EXAMINATION: GENERAL: The patient is alert and oriented x3, not in any acute distress. Well developed, well nourished. HEENT: Pupils are round and equally reacting to light. EOMI. No scleral icterus. No conjunctival pallor. Normocephalic, atraumatic. No pharyngeal erythema. No thyromegaly. CARDIOVASCULAR: S1 and S2 present. No murmurs, rubs, or gallops. Tachycardic regular rhythm PULMONARY: Chest is clear to auscultation, no wheezing or crackles. ABDOMEN: Soft, nontender, nondistended, normoactive bowel sounds. No palpable organomegaly. MUSCULOSKELETAL: No joint swelling or deformity. EXTREMITIES: No cyanosis, clubbing, or pedal edema. NEUROLOGICAL: Gross neurological examination did not reveal any focal deficits. SKIN: No rashes. - Labs CBC & Chem 7: 07/18/19 05:35 07/18/19 05:35 Labs: Abnormal Lab Results - Last 24 Hours (Table) 07/17/19 07/17/19 07/18/19 Range/Units 16:50 20:10 05:35 WBC 13.2 H (3.8-10.6) k/uL RBC 3.28 L (4.30-5.90) m/uL Hgb 9.9 L (13.0-17.5) gm/dL Hct 29.0 L (39.0-53.0) % Neutrophils # 12.6 H (1.3-7.7) k/uL Lymphocytes # 0.2 L (1.0-4.8) k/uL Sodium (137-145) mmol/L Glucose (74-99) mg/dL POC Glucose (mg/dL) 364 H 290 H (75-99) mg/dL Calcium (8.4-10.2) mg/dL 07/18/19 07/18/19 07/18/19 Range/Units 05:35 07:10 11:06 WBC (3.8-10.6) k/uL RBC (4.30-5.90) m/uL Hgb (13.0-17.5) gm/dL Hct (39.0-53.0) % Neutrophils # (1.3-7.7) k/uL Lymphocytes # (1.0-4.8) k/uL Sodium 133 L (137-145) mmol/L Glucose 247 H (74-99) mg/dL POC Glucose (mg/dL) 280 H 315 H (75-99) mg/dL Calcium 8.1 L (8.4-10.2) mg/dL Assessment and Plan Plan: --Acute renal failure: Secondary to hypotension and prerenal azotemia from hypotension. Patient's creatinine did improve. 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 -TIA in the past -Colonic mass for which patient will undergo colectomy tomorrow -History of melanoma
[2019-07-18 17:15] LABS: Glucose,Whole Blood 346 mg/dL (75-99)
--- NOTE | 2019-07-18 18:24 | CT ---
EXAMINATION TYPE: CT angio chest DATE OF EXAM: 07/18/2019 COMPARISON: Chest x-ray the same date HISTORY: R/o PE. Nurse not able to get 20 g IV, pushed 2 ml/sec in [address] DLP: 508.40 mGycm. Automated Exposure Control for Dose Reduction was Utilized. CONTRAST: CTA scan of the thorax is performed with IV Contrast, patient injected with 100 mL of Isovue 370, pul monary embolism protocol. MIP Images are created on CT scanner and reviewed. FINDINGS: LUNGS: There are trace bilateral pleural effusions and bibasilar airspace disease appearing as compre ssive atelectasis. Multifocal right-sided atelectasis is also seen with tree-in-bud opacity of the hanley perior segment of the right lower lobe on image 83. Bibasilar bronchiectasis is noted.. The tracheob ronchial tree is patent. MEDIASTINUM: The exam is nondiagnostic for pulmonary embolism bolus timing with greater amount of con trast in the aorta within pulmonary artery. There are no greater than 1 cm hilar or mediastinal lymp h nodes. There is a trace pericardial effusion and moderate to severe coronary artery calcifications. No cardiomegaly is seen. There is limited evaluation of the aortic root pulsation artifact however no gross evidence of thoracic dissection is seen. OTHER: There is fat stranding in the anterior right upper abdomen at the hepatic flexure that has wor sened from the prior of 06/30/2019. Hepatic steatosis is incidentally noted limiting evaluation of the liver. Liver is only partially visualized. Moderate multilevel degenerative change of the spine. Ove rall there are bridging anterior osteophytes suggesting diffuse idiopathic skeletal hyperostosis. IMPRESSION: 1. Nondiagnostic examination for pulmonary embolus. Moderate to severe coronary artery calcifications and trace pericardial effusion. 2. Tree-in-bud opacity in the right lower lobe most commonly related to infectious bronchiolitis. Pne umonia or atypical infection such as tuberculosis could also be considered. Trace bilateral pleural e ffusions and multifocal atelectasis is also seen. 3. Right upper quadrant pericolonic fat stranding of the hepatic flexure that is only partially visua lized but worsened from the prior of 06/30/2019. 4. No gross evidence of thoracic aortic dissection although there is limited evaluation of the aortic root given pulsation artifact.
[2019-07-18 20:10] LABS: Glucose,Whole Blood 311 mg/dL (75-99)
[2019-07-18] MEDS: INSULIN DETEMIR (LEVEMIR) 100 UNIT/ML SYR SQ SCH (20:41)
[2019-07-18] MEDS: QUEtiapine 50 MG TAB PO SCH (20:42)
[2019-07-18] MEDS: METOPROLOL TARTRATE 25 MG TAB PO SCH (20:42)
[2019-07-19 06:26] LABS: HCT 26.6 % (39.0-53.0); HGB 8.6 gm/dL (13.0-17.5); MCHC 32.5 g/dL (31.0-37.0); MCV 89.2 fL (80.0-100.0); Mean Platelet Volume 7.1; Platelet Count 195 k/uL (150-450); RBC 2.98 m/uL (4.30-5.90); RDW 14.4 % (11.5-15.5); WBC 3.5 k/uL (3.8-10.6)
[2019-07-19 06:44] LABS: Calcium 7.5 mg/dL (8.4-10.2); Potassium 4.1 mmol/L (3.5-5.1)
[2019-07-19 06:53] LABS: Glucose,Whole Blood 230 mg/dL (75-99)
[2019-07-19] MEDS: FAMOTIDINE 20 MG/2 ML VIAL IV SCH ×2 (08:17→21:23)
[2019-07-19] MEDS: ASPIRIN 81 MG PO SCH (08:17)
[2019-07-19] MEDS: HEPARIN SODIUM,PORCINE 5,000 UNIT/ML 1 ML VIAL SQ SCH ×2 (08:18→16:38)
[2019-07-19] MEDS: glipiZIDE 10 MG TAB PO SCH ×2 (08:18→16:43)
[2019-07-19] MEDS: ALVIMOPAN 12 MG CAPSULE PO SCH ×3 (08:18→21:23)
[2019-07-19] MEDS: LINAGLIPTIN 5 MG TABLET PO SCH (08:18)
[2019-07-19] MEDS: METOPROLOL TARTRATE 25 MG TAB PO SCH ×2 (08:25→21:23)
[2019-07-19] MEDS: INSULIN ASPART (NovoLOG) 100 UNIT/ML VIAL SQ SCH ×4 (08:25→21:23)
[2019-07-19] MEDS: SODIUM CHLORIDE 0.9% 1,000 ML IV SCH (08:35)
--- NOTE | 2019-07-19 10:59 | P.PN ---
Subjective Progress Note Date: 07/19/19 CHIEF COMPLAINT: Right colon mass HISTORY OF PRESENT ILLNESS: Patient is status post right colectomy. Epidural infusion at 7 mL an hour. Patient reports his pain is tolerable. He is tolerating clear liquid diet. No nausea or vomiting. He is passing flatus. He reports a small bowel movement this morning. He remains tachycardic. PHYSICAL EXAM: VITAL SIGNS: Reviewed. GENERAL: Well-developed in no acute distress. HEENT: No sclera icterus. Extraocular movements grossly intact. Moist buccal mucosa. Head is atraumatic, normocephalic. ABDOMEN: Soft. Nondistended. Dressing clean dry and intact NEUROLOGIC: Alert and oriented. Cranial nerves II through XII grossly intact. ASSESSMENT: 1. Right colon mass, status post right colectomy PLAN: -Discontinue epidural catheter 4 hours after last heparin administration -Discontinue Lang catheter -Advance diet to full liquids -Incentive spirometry -Activity as tolerated Nurse practitioner note has been reviewed by physician. Signing provider agrees with the documented findings, assessment, and plan of care. Objective - Vital Signs Vital signs: Vital Signs Temp 99.2 F 07/19/19 05:00 Pulse 118 H 07/19/19 08:23 Resp 18 07/19/19 08:23 BP 120/65 07/19/19 08:23 Pulse Ox 96 07/19/19 05:00 Intake & Output 07/18/19 07/19/19 07/19/19 18:59 06:59 18:59 Intake Total 600 Output Total 1250 601 Balance -650 -601 Intake: Oral 600 Output: Urine 1250 600 Stool 1 Other: Voiding Method Indwelling Catheter Indwelling Catheter # Voids 1 - Labs CBC & Chem 7: 07/19/19 05:27 07/19/19 05:27 Labs: Abnormal Lab Results - Last 24 Hours (Table) 07/18/19 07/18/19 07/18/19 Range/Units 11:06 13:46 17:13 WBC (3.8-10.6) k/uL RBC (4.30-5.90) m/uL Hgb (13.0-17.5) gm/dL Hct (39.0-53.0) % D-Dimer 8.62 H (<0.60) mg/L FEU Sodium (137-145) mmol/L BUN (9-20) mg/dL Glucose (74-99) mg/dL POC Glucose (mg/dL) 315 H 346 H (75-99) mg/dL Calcium (8.4-10.2) mg/dL 07/18/19 07/19/19 07/19/19 Range/Units 20:08 05:27 05:27 WBC 3.5 L (3.8-10.6) k/uL RBC 2.98 L (4.30-5.90) m/uL Hgb 8.6 L (13.0-17.5) gm/dL Hct 26.6 L (39.0-53.0) % D-Dimer (<0.60) mg/L FEU Sodium 135 L (137-145) mmol/L BUN 24 H (9-20) mg/dL Glucose 211 H (74-99) mg/dL POC Glucose (mg/dL) 311 H (75-99) mg/dL Calcium 7.5 L (8.4-10.2) mg/dL 07/19/19 Range/Units 06:52 WBC (3.8-10.6) k/uL RBC (4.30-5.90) m/uL Hgb (13.0-17.5) gm/dL Hct (39.0-53.0) % D-Dimer (<0.60) mg/L FEU Sodium (137-145) mmol/L BUN (9-20) mg/dL Glucose (74-99) mg/dL POC Glucose (mg/dL) 230 H (75-99) mg/dL Calcium (8.4-10.2) mg/dL
[2019-07-19 11:29] LABS: Glucose,Whole Blood 155 mg/dL (75-99)
--- NOTE | 2019-07-19 13:26 | P.CNPUL ---
History of Present Illness Consult date: 07/19/19 Requesting physician: Jeremy Hernandez Reason for consult: dyspnea Chief complaint: Elective colectomy after being found to have cancerous mass in the hepati History of present illness: This is a very pleasant 73-year-old gentleman who follows with Dr. Hines as his primary care provider. He has a history of CVA/TIA, hearing disorder, hypertension, recent melanoma removed from the left cheek and right ear at the [facility] approximate 8 weeks ago. He was also found to have a par tial obstructing tumor at the hepatic flexure/right colonic mass. He presented here on 07/15/2019 for an elective colectomy. Pathology pending. Start a he was having some complaints of increasing shortness of breath. A chest x-ray revealed no acute pulmonary process. There is evidence of cardiomegaly. CT angiogram revealed no evidence of pulmonary embolus. There was noted moderate to severe coronary artery calcification and trace paracardial effusion. There was noted tree and bud opacity in the right lower lobe suspicious for infectious bronchiolitis. Pneumonia or atypical infection is within the differential. There is multifocal atelectasis seen. White count 3.5. Hemoglobin 8.6. Sodium 135. Potassium 4.1. Creatinine 1.15. He is seen in consultation today on the regular medical floor. He is currently resting quite comfortably in bed. Awake and alert in no acute distress. His pain is well managed with epidural catheter of fentanyl. He is working with the incentive spirometer only pulling approximately 500 ML's currently. He is maintaining good O2 saturations in the mid 90s on 2 L/m per nasal cannula. He's been afebrile. Blood pressure stable. Somewhat tachycardic. Review of Systems REVIEW OF SYSTEMS: CONSTITUTIONAL: Denies any recent significant weight loss or weight gain. EYES: Denies change in vision. EARS, NOSE, MOUTH, THROAT: Denies headaches, denies sore throat. CARDIOVASCULAR: Denies chest pain, palpitations or syncopal episodes. RESPIRATORY: Mild shortness of breath yesterday. No cough or congestion. GASTROINTESTINAL: Postsurgical abdominal discomfort, hypoactive bowel sounds GENITOURINARY: Denies hematuria, denies infections. MUSKULOSKELETAL: Denies pain, denies swelling. INTEGUMENTARY: Denies rash, denies eczema. NEUROLOGICAL: Denies recent memory loss, no recent seizure activity. PSYCHIATRIC: Denies anxiety, denies depression. HEMATOLOGIC/LYMPHATIC: Denies anemia, denies enlarged lymph nodes. Past Medical History Past Medical History: Cancer, CVA/TIA, Hearing Disorder / Deafness, Hypertension Additional Past Medical History / Comment(s): MELENOMA, "BLOOD CANCER" History of Any Multi-Drug Resistant Organisms: None Reported Past Surgical History: Cholecystectomy, Joint Replacement Additional Past Surgical History / Comment(s): MELENOMA FROM RIGHT EAR AND LEFT CHEEK, RIGHT AND LEFT TOTAL KNEE, BILATERAL CATARACT WITH IMPLANTS Past Anesthesia/Blood Transfusion Reactions: No Reported Reaction Smoking Status: Never smoker - Past Family History Mother Family Medical History: Cancer Medications and Allergies Home Medications Medication Instructions Recorded Confirmed Type Aspirin 81 mg PO DAILY 07/14/19 07/15/19 History Lisinopril [Zestril] 40 mg PO DAILY 07/14/19 07/15/19 History QUEtiapine FUMARATE 50 mg PO HS 07/14/19 07/15/19 History amLODIPine [Norvasc] 5 mg PO DAILY 07/14/19 07/15/19 History glyBURIDE [Diabeta] 10 mg PO AC-BID 07/14/19 07/15/19 History metFORMIN HCL 1,000 mg PO BID 07/14/19 07/15/19 History sitaGLIPtin [Januvia] 100 mg PO DAILY 07/14/19 07/15/19 History Hydrocodone/Acetaminophen [[place] 1 tab PO Q6HR PRN #10 tab 07/16/19 Rx 5-325] Allergies Allergy/AdvReac Type Severity Reaction Status Date / Time No Known Allergies Allergy Verified 07/16/19 11:23 Physical Exam Vitals: Vital Signs Temp Pulse Resp BP Pulse Ox 07/19/19 11:51 97.6 F 118 H 17 120/68 96 07/19/19 08:23 118 H 18 120/65 07/19/19 05:00 99.2 F 120 H 18 124/66 96 07/19/19 02:37 99.2 F 122 H 18 121/66 96 07/18/19 19:27 98.2 F 136 H 18 138/70 94 L 07/18/19 16:00 122 H 18 Intake and Output 07/18/19 07/19/19 07/19/19 22:59 06:59 14:59 Intake Total 240 Output Total 1250 601 Balance -1010 -601 Intake: Oral 240 Output: Urine 1250 600 Stool 1 Other: Voiding Method Indwelling Catheter Indwelling Catheter # Voids 1 GENERAL EXAM: Alert, pleasant 73-year-old gentleman, on 2 L nasal cannula, comfortable in no apparent distress. HEAD: Normocephalic. EYES: Normal reaction of pupils, equal size. NOSE: Clear with pink turbinates. THROAT: No erythema or exudates. NECK: No masses, no JVD. CHEST: No chest wall deformity. LUNGS: Equal air entry with no crackles, wheeze, rhonchi or dullness. CVS: S1 and S2 normal with no audible murmur, regular rhythm. ABDOMEN: Surgical dressing dry and intact. No hepatosplenomegaly, normal bowel sounds, no guarding or rigidity. SPINE: No scoliosis or deformity SKIN: No rashes CENTRAL NERVOUS SYSTEM: No focal deficits, tone is normal in all 4 extremities. EXTREMITIES: There is no peripheral edema. No clubbing, no cyanosis. Per ipheral pulses are intact. Results - Laboratory Findings CBC and BMP: 07/19/19 05:27 07/19/19 05:27 PT/INR, D-dimer D-Dimer 8.62 mg/L FEU (<0.60) H 07/18/19 13:46 Abnormal lab findings: Abnormal Labs 07/15/19 07/15/19 07/15/19 08:44 11:37 16:38 WBC RBC Hgb Hct Neutrophils # Lymphocytes # D-Dimer Sodium Potassium BUN Creatinine Glucose POC Glucose (mg/dL) 231 H 206 H 226 H Calcium AST Total Protein Albumin 07/15/19 07/16/19 07/16/19 20:18 06:37 06:37 WBC RBC Hgb 12.6 L Hct 38.6 L Neutrophils # Lymphocytes # 0.8 L D-Dimer Sodium 136 L Potassium BUN Creatinine Glucose 188 H POC Glucose (mg/dL) 259 H Calcium AST 15 L Total Protein Albumin 07/16/19 07/16/19 07/16/19 07:02 11:20 13:50 WBC RBC Hgb Hct Neutrophils # Lymphocytes # D-Dimer Sodium Potassium BUN Creatinine Glucose POC Glucose (mg/dL) 194 H 217 H 228 H Calcium AST Total Protein Albumin 07/16/19 07/16/19 07/16/19 15:45 15:45 17:02 WBC 15.1 H RBC 3.66 L Hgb 10.8 L Hct 33.3 L Neutrophils # 13.8 H Lymphocytes # 0.5 L D-Dimer Sodium 134 L Potassium BUN Creatinine Glucose 233 H POC Glucose (mg/dL) 273 H Calcium 8.3 L AST Total Protein Albumin 07/16/19 07/17/19 07/17/19 19:49 00:22 01:01 WBC 21.2 H RBC 3.35 L Hgb 10.0 L Hct 29.9 L Neutrophils # Lymphocytes # D-Dimer Sodium Potassium BUN Creatinine Glucose POC Glucose (mg/dL) 323 H 242 H Calcium AST Total Protein Albumin 07/17/19 07/17/19 07/17/19 07:01 11:30 12:34 WBC 14.4 H RBC 3.23 L Hgb 9.4 L Hct 29.1 L Neutrophils # 13.4 H Lymphocytes # 0.3 L D-Dimer Sodium Potassium BUN Creatinine Glucose POC Glucose (mg/dL) 218 H 280 H Calcium AST Total Protein Albumin 07/17/19 07/17/19 07/17/19 12:34 16:50 20:10 WBC RBC Hgb Hct Neutrophils # Lymphocytes # D-Dimer Sodium 136 L Potassium 5.2 H BUN Creatinine 1.84 H Glucose 312 H POC Glucose (mg/dL) 364 H 290 H Calcium 7.7 L AST Total Protein 5.6 L Albumin 2.7 L 07/18/19 07/18/19 07/18/19 05:35 05:35 07:10 WBC 13.2 H RBC 3.28 L Hgb 9.9 L Hct 29.0 L Neutrophils # 12.6 H Lymphocytes # 0.2 L D-Dimer Sodium 133 L Potassium BUN Creatinine Glucose 247 H POC Glucose (mg/dL) 280 H Calcium 8.1 L AST Total Protein Albumin 07/18/19 07/18/19 07/18/19 11:06 13:46 17:13 WBC RBC Hgb Hct Neutrophils # Lymphocytes # D-Dimer 8.62 H Sodium Potassium BUN Creatinine Glucose POC Glucose (mg/dL) 315 H 346 H Calcium AST Total Protein Albumin 07/18/19 07/19/19 07/19/19 20:08 05:27 05:27 WBC 3.5 L RBC 2.98 L Hgb 8.6 L Hct 26.6 L Neutrophils # Lymphocytes # D-Dimer Sodium 135 L Potassium BUN 24 H Creatinine Glucose 211 H POC Glucose (mg/dL) 311 H Calcium 7.5 L AST Total Protein Albumin 07/19/19 07/19/19 06:52 11:28 WBC RBC Hgb Hct Neutrophils # Lymphocytes # D-Dimer Sodium Potassium BUN Creatinine Glucose POC Glucose (mg/dL) 230 H 155 H Calcium AST Total Protein Albumin - Diagnostic Findings Chest x-ray: image reviewed CT scan - chest: image reviewed Assessment and Plan Assessment: 1 Colonic mass positive for adenocarcinoma status post colectomy, postoperative day #4 2 Dyspnea secondary to atelectasis secondary to above. CT angiogram ruled out pulmonary embolus. There is some tree and bud opacity in the right lower lobe most commonly related infectious bronchiolitis evidence of atelectasis 3 History of melanoma with recent resection of the left cheek and right ear at the [facility] approximately 8 weeks ago 4 History of CVA/TIA 5 Hearing disorder 6 Diabetes mellitus 7 Hypertension Plan: The patient was seen and evaluated by Dr. Villarreal Chest x-ray, CAT scans and labs reviewed May benefit from repeat CT of the chest or PET scan in the outpatient setting Encourage increased use of the incentive spirometer and cough and deep breathing exercises Increase activity as tolerated Increase diet as tolerated We'll continue to follow I, the cosigning physician, performed a history & physical examination of the patient. Lungs sounds with few scattered rhonchi. Maintaining good O2 saturations in the 90s on 2 L/m per nasal. I discussed the assessment and plan of care with my nurse practitioner, Amarilys Mancini. I attest to the above consultation as dictated by her. Time with Patient: Greater than 30
--- NOTE | 2019-07-19 14:35 | P.PN ---
Subjective Progress Note Date: 07/19/19 Principal diagnosis: No overnight events patient is clinically doing well patient will undergo colectomy today his blood pressures well controlled. 07/17/2019 Patient is status post right-sided hemicolectomy. Biopsy results are pending. Patient has colon cancer. Patient is bit hypotensive leading to acute renal failure patient is receiving lactated Ringer's which will be changed to normal saline because of hyperkalemia. His blood sugars are elevated as well continue to monitor and patient will be started on long-acting insulin or glyburide. Everything was discontinued because of hypotension leading to acute renal failure 07/18/2019 Patient's blood sugars are very high long-acting insulin will be added to his regimen, and is passing gas did not move his bowels yet. 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 Patient need to be fluid restricted although will continue with IV fluids as patient is still tachycardic patient will be started on metoprolol and I'll order a d-dimer TSH and a chest x-ray further management depending on these tests. Constitutional: Denied any fatigue denied any fever. Cardio vascular: denied any chest pain, palpitations Gastrointestinal denied any nausea vomiting Pulmonary: Denied any shortness of breath cough Neurologic denied any new focal deficits 07/19/2019 Patient is seen and evaluated today and remains quite lethargic but is arousable. Patient is to have epidural pump removed today. Discussed with patient about increasing activity as tolerated. Also discussed with the patient at length about continuing to use the incentive spirometer at least 10 times every hour while awake. Patient underwent CTA yesterday which shows a trace of pericardial effusion along with a trace of bilateral pleural effusions and multifocal atelectasis and nondiagnostic of pulmonary embolism. Pulmonary is following. Currently no reports of chest pain, shortness of breath, or palpita tions. Patient is afebrile. No reports of nausea or vomiting and patient is tolerating diet. Patient's diet is being advanced to full liquids today. Patient continues to be slightly tachycardic in the 110's to 120s and was initiated on metoprolol. Will continue to follow along closely. Objective - Vital Signs Vital signs: Vital Signs Temp 97.6 F 07/19/19 11:51 Pulse 118 H 07/19/19 11:51 Resp 17 03/30/20 11:51 BP 120/68 07/19/19 11:51 Pulse Ox 96 07/19/19 11:51 Intake & Output 07/18/19 07/19/19 07/19/19 18:59 06:59 18:59 Intake Total 600 Output Total 1250 601 Balance -650 -601 Intake: Oral 600 Output: Urine 1250 600 Stool 1 Other: Voiding Method Indwelling Catheter Indwelling Catheter # Voids 1 - Exam GENERAL: The patient is alert and oriented x3, not in any acute distress. Well developed, well nourished. HEENT: Pupils are round and equally reacting to light. EOMI. No scleral icterus. No conjunctival pallor. Normocephalic, atraumatic. No pharyngeal erythema. No thyromegaly. CARDIOVASCULAR: S1 and S2 present. No murmurs, rubs, or gallops. Tachycardic regular rhythm PULMONARY: Chest is clear to auscultation, no wheezing or crackles. ABDOMEN: Soft, nontender, nondistended, normoactive bowel sounds. No palpable organomegaly. MUSCULOSKELETAL: No joint swelling or deformity. EXTREMITIES: No cyanosis, clubbing, or pedal edema. NEUROLOGICAL: Gross neurological examination did not reveal any focal deficits. SKIN: No rashes. - Labs CBC & Chem 7: 07/19/19 05:27 07/19/19 05:27 Labs: Abnormal Lab Results - Last 24 Hours (Table) 07/18/19 07/18/19 07/18/19 Range/Units 13:46 17:13 20:08 WBC (3.8-10.6) k/uL RBC (4.30-5.90) m/uL Hgb (13.0-17.5) gm/dL Hct (39.0-53.0) % D-Dimer 8.62 H (<0.60) mg/L FEU Sodium (137-145) mmol/L BUN (9-20) mg/dL Glucose (74-99) mg/dL POC Glucose (mg/dL) 346 H 311 H (75-99) mg/dL Calcium (8.4-10.2) mg/dL 07/19/19 07/19/19 07/19/19 Range/Units 05:27 05:27 06:52 WBC 3.5 L (3.8-10.6) k/uL RBC 2.98 L (4.30-5.90) m/uL Hgb 8.6 L (13.0-17.5) gm/dL Hct 26.6 L (39.0-53.0) % D-Dimer (<0.60) mg/L FEU Sodium 135 L (137-145) mmol/L BUN 24 H (9-20) mg/dL Glucose 211 H (74-99) mg/dL POC Glucose (mg/dL) 230 H (75-99) mg/dL Calcium 7.5 L (8.4-10.2) mg/dL 07/19/19 Range/Units 11:28 WBC (3.8-10.6) k/uL RBC (4.30-5.90) m/uL Hgb (13.0-17.5) gm/dL Hct (39.0-53.0) % D-Dimer (<0.60) mg/L FEU Sodium (137-145) mmol/L BUN (9-20) mg/dL Glucose (74-99) mg/dL POC Glucose (mg/dL) 155 H (75-99) mg/dL Calcium (8.4-10.2) mg/dL Assessment and Plan Assessment: -Acute renal failure: Secondary to hypotension and prerenal azotemia from hypotension. Continue with IV fluids, current creatinine 1.15. -Sinus tachycardia can be still secondary to intravascular volume depletion continue with IV fluids but will decrease his free water intake because of hyponatremia. D-dimer was elevated at 8.62 and a CTA of the chest was negative for pulmonary embolism. Patient was initiated on metoprolol and will continue at this time. 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 Lantus was added to his regimen. Will continue to monitor blood sugars closely. -Hypertension holding off anti-hypertensive medications secondary to perioperative hypotension which is expected. holding off on KRISTA inhibitor as wel l as amlodipine. -TIA in the past -Colonic mass for which patient will underwent colectomy with Dr. Hernandez -History of melanoma
[2019-07-19] MEDS: HYDROmorphone 1 MG/ML 1 ML SYRINGE IVP PRN ×2 (16:35→21:17)
[2019-07-19 16:54] LABS: Glucose,Whole Blood 162 mg/dL (75-99)
[2019-07-19 20:37] LABS: Glucose,Whole Blood 258 mg/dL (75-99)
[2019-07-19] MEDS: ONDANSETRON 4 MG/2 ML VIAL IVP PRN (21:20)
[2019-07-19] MEDS: QUEtiapine 50 MG TAB PO SCH (21:23)
[2019-07-19] MEDS: INSULIN DETEMIR (LEVEMIR) 100 UNIT/ML SYR SQ SCH (21:23)
[2019-07-20] MEDS: HEPARIN SODIUM,PORCINE 5,000 UNIT/ML 1 ML VIAL SQ SCH ×4 (00:05→23:44)
[2019-07-20] MEDS: SODIUM CHLORIDE 0.9% 1,000 ML IV SCH (04:47)
[2019-07-20] MEDS ORDERED: HYDROmorphone 0.5 MG/0.5 ML SYRINGE IVP PRN (06:54)
[2019-07-20 07:02] LABS: Glucose,Whole Blood 79 mg/dL (75-99)
[2019-07-20] MEDS: INSULIN ASPART (NovoLOG) 100 UNIT/ML VIAL SQ SCH ×4 (07:24→20:28)
[2019-07-20 09:40] LABS: African American GFR (CKD) >90 (>60 ml/min/1.73 sqM); Anion Gap 7 mmol/L; Basophils % (A) 0 %; Blood Urea Nitrogen 18 mg/dL (9-20); Calcium 7.3 mg/dL (8.4-10.2); Carbon Dioxide 24 mmol/L (22-30); Chloride 106 mmol/L (98-107); Eosinophils % (A) 0 %; Glucose 148 mg/dL (74-99); HCT 25.8 % (39.0-53.0); HGB 8.5 gm/dL (13.0-17.5); Lymphocytes # (A) 0.2 k/uL (1.0-4.8); Lymphocytes % (A) 3 %; MCH 29.3 pg (25.0-35.0); MCV 88.9 fL (80.0-100.0); Mean Platelet Volume 7.1; Monocytes # (A) 0.3 k/uL (0-1.0); Monocytes % (A) 5 %; Neutrophils # (A) 6.3 k/uL (1.3-7.7); Neutrophils % (A) 91 %; Non-African American GFR(CKD) 81 (>60 ml/min/1.73 sqM); Platelet Count 202 k/uL (150-450); Potassium 3.5 mmol/L (3.5-5.1); RDW 14.2 % (11.5-15.5); Sodium 137 mmol/L (137-145); WBC 6.9 k/uL (3.8-10.6)
[2019-07-20] MEDS: FAMOTIDINE 20 MG/2 ML VIAL IV SCH ×2 (09:44→20:27)
[2019-07-20] MEDS: glipiZIDE 10 MG TAB PO SCH ×2 (09:44→18:19)
[2019-07-20] MEDS: ASPIRIN 81 MG PO SCH (09:49)
[2019-07-20] MEDS: METOPROLOL TARTRATE 25 MG TAB PO SCH ×2 (09:49→20:28)
[2019-07-20] MEDS ORDERED: TAMSULOSIN 0.4 MG CAP.ER.24H PO STA (10:49)
[2019-07-20 11:41] LABS: Glucose,Whole Blood 212 mg/dL (75-99)
--- NOTE | 2019-07-20 12:02 | P.PN ---
Subjective Progress Note Date: 07/20/19 CHIEF COMPLAINT: Right colon mass HISTORY OF PRESENT ILLNESS: Patient is status post right colectomy. Patient examined at the bedside. Epidural discontinued yesterday. Pain controlled. Tolerating diet. No nausea or vomiting. WBC 6.9. Hemoglobin 8.5. Blood pressure stable. Afebrile. He remains mildly tachycardic. He was started on metoprolol yesterday per internal medicine. Patient had urinary retention yesterday after harris was removed. Harris was replaced this morning. PHYSICAL EXAM: VITAL SIGNS: Reviewed. GENERAL: Well-developed in no acute distress. HEENT: No sclera icterus. Extraocular movements grossly intact. Moist buccal mucosa. Head is atraumatic, normocephalic. ABDOMEN: Soft. Nondistended. Dressing clean dry and intact NEUROLOGIC: Alert and oriented. Cranial nerves II through XII grossly intact. ASSESSMENT: 1. Right colon mass, status post right colectomy PLAN: -Pain control. Continue [place] -Advance diet -Incentive spirometry -Activity as tolerated -Add Flomax Nurse practitioner note has been reviewed by physician. Signing provider agrees with the documented findings, assessment, and plan of care. Objective - Vital Signs Vital signs: Vital Signs Temp 98.8 F 07/20/19 04:44 Pulse 109 H 07/20/19 04:44 Resp 16 07/20/19 04:44 BP 143/75 07/20/19 04:44 Pulse Ox 95 07/20/19 04:44 Intake & Output 07/19/19 07/20/19 07/20/19 18:59 06:59 18:59 Intake Total 210.417 Output Total 500 525 Balance 210.417 -500 -525 Intake: Intake, IV Titration 210.417 Amount Ropivacaine 250 mg 210.417 fentaNYL (PF) 1,250 mcg In Sodium Chloride 0.9% 175 ml @ Per Protocol EPIDURAL .Q0M PRN Rx#: [id number] Output: Urine 500 525 Uretheral (Harris) 500 525 Other: Voiding Method Indwelling Catheter # Bowel Movements 1 - Labs CBC & Chem 7: 07/20/19 09:11 07/20/19 09:11 Labs: Abnormal Lab Results - Last 24 Hours (Table) 07/19/19 07/19/19 07/19/19 Range/Units 11:28 16:52 20:35 RBC (4.30-5.90) m/uL Hgb (13.0-17.5) gm/dL Hct (39.0-53.0) % Lymphocytes # (1.0-4.8) k/uL Glucose (74-99) mg/dL POC Glucose (mg/dL) 155 H 162 H 258 H (75-99) mg/dL Calcium (8.4-10.2) mg/dL 07/20/19 07/20/19 Range/Units 09:11 09:11 RBC 2.90 L (4.30-5.90) m/uL Hgb 8.5 L (13.0-17.5) gm/dL Hct 25.8 L (39.0-53.0) % Lymphocytes # 0.2 L (1.0-4.8) k/uL Glucose 148 H (74-99) mg/dL POC Glucose (mg/dL) (75-99) mg/dL Calcium 7.3 L (8.4-10.2) mg/dL
--- NOTE | 2019-07-20 13:25 | P.PN ---
Subjective Progress Note Date: 07/20/19 Principal diagnosis: No overnight events patient is clinically doing well patient will undergo colectomy today his blood pressures well controlled. 07/17/2019 Patient is status post right-sided hemicolectomy. Biopsy results are pending. Patient has colon cancer. Patient is bit hypotensive leading to acute renal failure patient is receiving lactated Ringer's which will be changed to normal saline because of hyperkalemia. His blood sugars are elevated as well continue to monitor and patient will be started on long-acting insulin or glyburide. Everything was discontinued because of hypotension leading to acute renal failure 07/18/2019 Patient's blood sugars are very high long-acting insulin will be added to his regimen, and is passing gas did not move his bowels yet. 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 Patient need to be fluid restricted although will continue with IV fluids as patient is still tachycardic patient will be started on metoprolol and I'll order a d-dimer TSH and a chest x-ray further management depending on these tests. Constitutional: Denied any fatigue denied any fever. Cardio vascular: denied any chest pain, palpitations Gastrointestinal denied any nausea vomiting Pulmonary: Denied any shortness of breath cough Neurologic denied any new focal deficits 07/19/2019 Patient is seen and evaluated today and remains quite lethargic but is arousable. Patient is to have epidural pump removed today. Discussed with patient about increasing activity as tolerated. Also discussed with the patient at length about continuing to use the incentive spirometer at least 10 times every hour while awake. Patient underwent CTA yesterday which shows a trace of pericardial effusion along with a trace of bilateral pleural effusions and multifocal atelectasis and nondiagnostic of pulmonary embolism. Pulmonary is following. Currently no reports of chest pain, shortness of breath, or palpita tions. Patient is afebrile. No reports of nausea or vomiting and patient is tolerating diet. Patient's diet is being advanced to full liquids today. Patient continues to be slightly tachycardic in the 110's to 120s and was initiated on metoprolol. Will continue to follow along closely. 07/20/2019 Patient is seen in follow-up today much more awake and alert and has just had a bowel movement and is incontinent. Patient had some urinary retention status post Lang removal yesterday and the Lang was replaced today. Flomax being initiated. PT/OT order placed to evaluate the patient. When talking with the patient about discharge planning he states he will be returning home with family. Currently no reports of chest pain, shortness of breath, or palpitations. Patient is currently on 2 L of oxygen although does not normally wear this at home. Instructed to increase activity as tolerated. Amalia following. Patient is afebrile. Patient remains slightly tachycardic in the low 100s. Will continue to monitor vital signs closely. No reports of nausea or vomiting and patient is tolerating diet. Objective - Vital Signs Vital signs: Vital Signs Temp 97.6 F 07/20/19 11:30 Pulse 96 07/20/19 11:30 Resp 16 07/20/19 11:30 BP 112/59 07/20/19 11:30 Pulse Ox 95 07/20/19 11:30 Intake & Output 07/19/19 07/20/19 07/20/19 18:59 06:59 18:59 Intake Total 210.417 Output Total 500 525 Balance 210.417 -500 -525 Intake: Intake, IV Titration 210.417 Amount Ropivacaine 250 mg 210.417 fentaNYL (PF) 1,250 mcg In Sodium Chloride 0.9% 175 ml @ Per Protocol EPIDURAL .Q0M PRN Rx#: [id number] Output: Urine 500 525 Uretheral (Lang) 500 525 Other: Voiding Method Indwelling Catheter # Bowel Movements 1 - Exam GENERAL: The patient is alert and oriented x3, not in any acute distress. Well developed, well nourished. HEENT: Pupils are round and equally reacting to light. EOMI. No scleral icterus. No conjunctival pallor. Normocephalic, atraumatic. No pharyngeal erythema. No thyromegaly. CARDIOVASCULAR: S1 and S2 present. No murmurs, rubs, or gallops. Tachycardic regular rhythm PULMONARY: Chest is clear to auscultation, no wheezing or crackles. ABDOMEN: Soft, nontender, nondistended, normoactive bowel sounds. No palpable organomegaly. MUSCULOSKELETAL: No joint swelling or deformity. EXTREMITIES: No cyanosis, clubbing, or pedal edema. NEUROLOGICAL: Gross neurological examination did not reveal any focal deficits. SKIN: No rashes. - Labs CBC & Chem 7: 07/20/19 09:11 07/20/19 09:11 Labs: Abnormal Lab Results - Last 24 Hours (Table) 07/19/19 07/19/19 07/20/19 Range/Units 16:52 20:35 09:11 RBC 2.90 L (4.30-5.90) m/uL Hgb 8.5 L (13.0-17.5) gm/dL Hct 25.8 L (39.0-53.0) % Lymphocytes # 0.2 L (1.0-4.8) k/uL Glucose (74-99) mg/dL POC Glucose (mg/dL) 162 H 258 H (75-99) mg/dL Calcium (8.4-10.2) mg/dL 07/20/19 07/20/19 Range/Units 09:11 11:33 RBC (4.30-5.90) m/uL Hgb (13.0-17.5) gm/dL Hct (39.0-53.0) % Lymphocytes # (1.0-4.8) k/uL Glucose 148 H (74-99) mg/dL POC Glucose (mg/dL) 212 H (75-99) mg/dL Calcium 7.3 L (8.4-10.2) mg/dL Assessment and Plan Assessment: -Acute renal failure: Secondary to hypotension and prerenal azotemia from hypotension. Continue with IV fluids, current creatinine 0.92. -Sinus tachycardia can be still secondary to intravascular volume depletion continue with IV fluids but will decrease his free water intake because of hyponatremia. Patient remains on metoprolol. 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 Lantus was added to his regimen. Will continue to monitor blood sugars closely. -Hypertension holding off anti-hypertensive medications secondary to perioperative hypotension which is expected. holding off on KRISTA inhibitor as well as amlodipine. -TIA in the past -Colonic mass for which patient underwent colectomy with Dr. Hernandez -History of melanoma
--- NOTE | 2019-07-20 13:37 | P.PN ---
Subjective Progress Note Date: 07/20/19 Principal diagnosis: Adenocarcinoma of the colon, status post colectomy This is a very pleasant 73-year-old gentleman who follows with Dr. Hines as his primary care provider. He has a history of CVA/TIA, hearing disorder, hypertension, recent melanoma removed from the left cheek and right ear at the [facility] approximate 8 weeks ago. He was also found to have a partial obstructing tumor at the hepatic flexure/right colonic mass. He presented here on 07/15/2019 for an elective colectomy. Pathology pending. Start a he was having some complaints of increasing shortness of breath. A chest x-ray revealed no acute pulmonary process. There is evidence of ca rdiomegaly. CT angiogram revealed no evidence of pulmonary embolus. There was noted moderate to severe coronary artery calcification and trace paracardial effusion. There was noted tree and bud opacity in the right lower lobe suspicious for infectious bronchiolitis. Pneumonia or atypical infection is within the differential. There is multifocal atelectasis seen. White count 3.5. Hemoglobin 8.6. Sodium 135. Potassium 4.1. Creatinine 1.15. He is seen in consultation today on the regular medical floor. He is currently resting quite comfortably in bed. Awake and alert in no acute distress. His pain is well managed with epidural catheter of fentanyl. He is working with the incentive spirometer only pulling approximately 500 ML's currently. He is maintaining good O2 saturations in the mid 90s on 2 L/m per nasal cannula. He's been afebrile. Blood pressure stable. Somewhat tachycardic. The patient is seen today 07/20/2019 in follow-up on the regular medical floor. He is sitting up in bed. Awake and alert in no acute distress. No shortness of breath. No cough. No congestion. Maintaining good O2 saturations in the 90s on room air. He's afebrile. Hemodynamically stable. Working well with the incentive spirometer. White count 6.9. Hemoglobin 8.5. Creatinine 0.92. His abdominal dressing is dry and intact. He is having bowel movements. Objective - Vital Signs Vital signs: Vital Signs Temp 97.6 F 07/20/19 11:30 Pulse 96 07/20/19 11:30 Resp 16 07/20/19 11:30 BP 112/59 07/20/19 11:30 Pulse Ox 95 07/20/19 11:30 Intake & Output 07/19/19 07/20/19 07/20/19 18:59 06:59 18:59 Intake Total 210.417 Output Total 500 525 Balance 210.417 -500 -525 Intake: Intake, IV Titration 210.417 Amount Ropivacaine 250 mg 210.417 fentaNYL (PF) 1,250 mcg In Sodium Chloride 0.9% 175 ml @ Per Protocol EPIDURAL .Q0M PRN Rx#: [id number] Output: Urine 500 525 Uretheral (Lang) 500 525 Other: Voiding Method Indwelling Catheter # Bowel Movements 1 - Exam GENERAL EXAM: Alert, pleasant 73-year-old gentleman, on room air, comfortable in no apparent distress. HEAD: Normocephalic. EYES: Normal reaction of pupils, equal size. NOSE: Clear with pink turbinates. THROAT: No erythema or exudates. NECK: No masses, no JVD. CHEST: No chest wall deformity. LUNGS: Equal air entry with no crackles, wheeze, rhonchi or dullness. CVS: S1 and S2 normal with no audible murmur, regular rhythm. ABDOMEN: Surgical dressing dry and intact. No hepatosplenomegaly, normal bowel sounds, no guarding or rigidity. SPINE: No scoliosis or deformity SKIN: No rashes CENTRAL NERVOUS SYSTEM: No focal deficits, tone is normal in all 4 extremities. EXTREMITIES: There is no peripheral edema. No clubbing, no cyanosis. Peripheral pulses are intact. - Labs CBC & Chem 7: 07/20/19 09:11 07/20/19 09:11 Labs: Abnormal Lab Results - Last 24 Hours (Table) 07/19/19 07/19/19 07/20/19 Range/Units 16:52 20:35 09:11 RBC 2.90 L (4.30-5.90) m/uL Hgb 8.5 L (13.0-17.5) gm/dL Hct 25.8 L (39.0-53.0) % Lymphocytes # 0.2 L (1.0-4.8) k/uL Glucose (74-99) mg/dL POC Glucose (mg/dL) 162 H 258 H (75-99) mg/dL Calcium (8.4-10.2) mg/dL 07/20/19 07/20/19 Range/Units 09:11 11:33 RBC (4.30-5.90) m/uL Hgb (13.0-17.5) gm/dL Hct (39.0-53.0) % Lymphocytes # (1.0-4.8) k/uL Glucose 148 H (74-99) mg/dL POC Glucose (mg/dL) 212 H (75-99) mg/dL Calcium 7.3 L (8.4-10.2) mg/dL Assessment and Plan Assessment: 1 Colonic mass positive for adenocarcinoma status post colectomy, postoperative day #5 2 Dyspnea secondary to atelectasis secondary to above. CT angiogram ruled out pulmonary embolus. There is some tree and bud opacity in the right lower lobe most commonly related infectious bronchiolitis evidence of atelectasis 3 History of melanoma with recent resection of the left cheek and right ear at the [facility] approximately 8 weeks ago 4 History of CVA/TIA 5 Hearing disorder 6 Diabetes mellitus 7 Hypertension Plan: The patient was seen and evaluated by Dr. Villarreal The patient is stable from the pulmonary standpoint for discharge once cleared medically Encourage increased use of the incentive spirometer and cough and deep breathing exercises May benefit from repeat CT of the chest or PET scan in the outpatient setting I, the cosigning physician, performed a history & physical examination of the patient. Lungs sounds are clear. Maintaining good O2 saturations in the 90s on room air. I discussed the assessment and plan of care with my nurse practitioner, Amarilys Mancini. I attest to the above consultation as dictated by her.
[2019-07-20] MEDS: LINAGLIPTIN 5 MG TABLET PO SCH (14:30)
[2019-07-20 17:09] LABS: Glucose,Whole Blood 256 mg/dL (75-99)
[2019-07-20 20:09] LABS: Glucose,Whole Blood 233 mg/dL (75-99)
[2019-07-20] MEDS: INSULIN DETEMIR (LEVEMIR) 100 UNIT/ML SYR SQ SCH (20:27)
[2019-07-20] MEDS: QUEtiapine 50 MG TAB PO SCH (20:28)
[2019-07-21] MEDS: SODIUM CHLORIDE 0.9% 1,000 ML IV SCH ×3 (02:20→19:57)
[2019-07-21 06:49] LABS: Glucose,Whole Blood 112 mg/dL (75-99)
[2019-07-21] MEDS: INSULIN ASPART (NovoLOG) 100 UNIT/ML VIAL SQ SCH ×4 (08:08→21:49)
[2019-07-21] MEDS: TAMSULOSIN 0.4 MG CAP.ER.24H PO SCH (08:09)
[2019-07-21] MEDS: glipiZIDE 10 MG TAB PO SCH ×2 (08:09→17:31)
[2019-07-21] MEDS: ASPIRIN 81 MG PO SCH (08:09)
[2019-07-21] MEDS: LINAGLIPTIN 5 MG TABLET PO SCH (08:09)
[2019-07-21] MEDS: METOPROLOL TARTRATE 25 MG TAB PO SCH (08:09)
[2019-07-21] MEDS: FAMOTIDINE 20 MG/2 ML VIAL IV SCH ×2 (08:10→21:50)
[2019-07-21] MEDS: HEPARIN SODIUM,PORCINE 5,000 UNIT/ML 1 ML VIAL SQ SCH ×2 (08:10→17:30)
--- NOTE | 2019-07-21 09:11 | CDI ---
Documentation Clarification Form Date: 07/20/2019 04:32:00 PM From: Angelia Rueda RN, CCDS Admit Date: 07/16/2019 09:14:00 AM Patient Name: Lupillo Moulton Visit Number: [id number] Discharge Date: ATTENTION: The Clinical Documentation Specialists (CDI) and [facility] Coding Staff appreciate your assistance in clarifying documentation. Please respond to the clarification below the line at the bottom and electronically sign. The CDI & [facility] Coding staff will review the response and follow-up if needed. Please note: Queries are made part of the Legal Health Record. If you have any questions, please contact the author of this message via ITS. Dr. Jeremy Hernandez On 07/19 urinary retention is documented in your progress notes and further clarification is requested. Patients Admitting Diagnosis: Right colon mass Post-Operative Diagnosis: Partial obstructing tumor at hepatic flexure Procedure performed: Right-sided Hemicolectomy History/Risk Factors: Hypertension, Diabetes mellitus, Melanoma , Colonic mass Clinical Indicators: 73-year-old male who is post right colectomy. Patient had urinary retention after Lang was removed on 07/18 and reinserted on 07/19. Treatment: Monitor I/O Flomax 0.4 mg daily In order to accurately reflect this patients severity of illness, please clarify if the urinary retention: -is a complication of surgical procedure -is an expected outcome of the surgical procedure -is related to co-morbid condition(s) of -Other please specify -Unable to determine (Last Revision: May 2019) Unable to determine MTDD
--- NOTE | 2019-07-21 10:06 | CDI ---
Documentation Clarification Form Date: 07/21/2019 09:15:21 AM From: Angelia Rueda RN, CCDS Admit Date: 07/16/2019 09:14:00 AM Patient Name: Lupillo Moulton Visit Number: [id number] Discharge Date: ATTENTION: The Clinical Documentation Specialists (CDI) and [facility] Coding Staff appreciate your assistance in clarifying documentation. Please respond to the clarification below the line at the bottom and electronically sign. The CDI & [facility] Coding staff will review the response and follow-up if needed. Please note: Queries are made part of the Legal Health Record. If you have any questions, please contact the author of this message via ITS. Dr. Ahmet Villarreal Dyspnea secondary to Atelectasis is documented in the progress note starting on 07/18 and patient is post colectomy and postoperative day #4. In order to accurately reflect the patient condition further clarification is requested. Patients Admitting Diagnosis: Colonic mass Post-Operative Diagnosis: Right Colon Cancer Procedure performed: Right Colectomy History/Risk Factors: Diabetes mellitus, Hypertension, Melanoma, Colonic mass Clinical Indicators: On 07/18 patient underwent CTA yesterday which shows a trace of pericardial effusion along with trace of bilateral pleural effusion and multifocal atelectasis and nondiagnostic of pulmonary embolism. Patient on 2/L nasal cannula, comfortable in no apparent distress. Lungs (per progress note 07/18) Equal air entry with no crackles, wheeze, rhonchi or dullness. Treatment: Incentive spirometer Monitor and maintain O2 Saturation >90 on 2/L NC In order to accurately reflect this patients severity of illness, please clarify if the atelectasis diagnosis: -is an expected outcome of the surgical procedure -is a complication of surgical procedure -is related to co-morbid condition(s) of -Other please specify -Unable to determine (Last Revision: May 2019) is an expected outcome of the surgical procedure MTDD
[2019-07-21 10:07] LABS: African American GFR (CKD) >90 (>60 ml/min/1.73 sqM); Anion Gap 6 mmol/L; Blood Urea Nitrogen 16 mg/dL (9-20); Calcium 7.1 mg/dL (8.4-10.2); Carbon Dioxide 24 mmol/L (22-30); Chloride 107 mmol/L (98-107); Glucose 134 mg/dL (74-99); Non-African American GFR(CKD) 86 (>60 ml/min/1.73 sqM); Potassium 3.5 mmol/L (3.5-5.1); Sodium 137 mmol/L (137-145)
--- NOTE | 2019-07-21 11:01 | CDI ---
Documentation Clarification Form Date: 07/21/2019 10:27:25 AM From: Angelia Rueda RN, CCDS Admit Date: 07/16/2019 09:14:00 AM Patient Name: Lupillo Moulton Visit Number: [id number] Discharge Date: ATTENTION: The Clinical Documentation Specialists (CDI) and [facility] Coding Staff appreciate your assistance in clarifying documentation. Please respond to the clarification below the line at the bottom and electronically sign. The CDI & [facility] Coding staff will review the response and follow-up if needed. Please note: Queries are made part of the Legal Health Record. If you have any questions, please contact the author of this message via ITS. Dr. George Camacho 07/15 Hemoglobin on 07/15 12.6, Hematocrit 38.6. On 07/19 hemoglobin 8.5. Clarification of clinical significance is requested History/Risk Factors: Colon Cancer, Right-sided Hemicolectomy (07/16/19) Clinical indicators: 73-year-old male present on for elective colonscopy and found to have a partial obstructing tumor at hepatic flexure and was taken to or on 07/15 for right colectomy Vital signs 07/19@ 11:30 112/59 96 16 97.6 95 % RA Labs 07/15 07:59 HGB 12.6, HCT 38.6; 15:59 HGB 10.8, HCT 33.3 07/16 03:59 HGB 10.0, HCT 29.9 15:59 HGB 9.4, HCT 29.1 07/17 07:59 HGB 9.9, HCT 29.0 07/18 07:59 HGB 8.6, HCT 26.6 07/19 11:59 HGB 8.5, HCT 25.8 Treatment: Monitor CBC, Per orders .9 Saline @ 75 mls/hr Clinical significance of diagnostic testing and treatment CANNOT be assumed or coded without physician documentation of significance if any. Please clarify what abnormal lab results signify: Acute blood loss anemia (specify if expected or other) Disease process, please specify Unable to determine Other, please specify (Last Revision: January 2017) expected acute blood loss anemia from surgery MTDD
--- NOTE | 2019-07-21 11:06 | P.PN ---
Subjective Progress Note Date: 07/21/19 Principal diagnosis: No overnight events patient is clinically doing well patient will undergo colectomy today his blood pressures well controlled. 07/17/2019 Patient is status post right-sided hemicolectomy. Biopsy results are pending. Patient has colon cancer. Patient is bit hypotensive leading to acute renal failure patient is receiving lactated Ringer's which will be changed to normal saline because of hyperkalemia. His blood sugars are elevated as well continue to monitor and patient will be started on long-acting insulin or glyburide. Everything was discontinued because of hypotension leading to acute renal failure 07/18/2019 Patient's blood sugars are very high long-acting insulin will be added to his regimen, and is passing gas did not move his bowels yet. 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 Patient need to be fluid restricted although will continue with IV fluids as patient is still tachycardic patient will be started on metoprolol and I'll order a d-dimer TSH and a chest x-ray further management depending on these tests. Constitutional: Denied any fatigue denied any fever. Cardio vascular: denied any chest pain, palpitations Gastrointestinal denied any nausea vomiting Pulmonary: Denied any shortness of breath cough Neurologic denied any new focal deficits 07/19/2019 Patient is seen and evaluated today and remains quite lethargic but is arousable. Patient is to have epidural pump removed today. Discussed with patient about increasing activity as tolerated. Also discussed with the patient at length about continuing to use the incentive spirometer at least 10 times every hour while awake. Patient underwent CTA yesterday which shows a trace of pericardial effusion along with a trace of bilateral pleural effusions and multifocal atelectasis and nondiagnostic of pulmonary embolism. Pulmonary is following. Currently no reports of chest pain, shortness of breath, or palpita tions. Patient is afebrile. No reports of nausea or vomiting and patient is tolerating diet. Patient's diet is being advanced to full liquids today. Patient continues to be slightly tachycardic in the 110's to 120s and was initiated on metoprolol. Will continue to follow along closely. 07/20/2019 Patient is seen in follow-up today much more awake and alert and has just had a bowel movement and is incontinent. Patient had some urinary retention status post Lang removal yesterday and the Lang was replaced today. Flomax being initiated. PT/OT order placed to evaluate the patient. When talking with the patient about discharge planning he states he will be returning home with family. Currently no reports of chest pain, shortness of breath, or palpitations. Patient is currently on 2 L of oxygen although does not normally wear this at home. Instructed to increase activity as tolerated. Amalia following. Patient is afebrile. Patient remains slightly tachycardic in the low 100s. Will continue to monitor vital signs closely. No reports of nausea or vomiting and patient is tolerating diet. 07/21/2019 Patient is seen in follow-up today alert, awake and oriented 3 and sitting up in the chair. Patient continues to be slightly tachycardic and metoprolol will be increased to 50 mg twice a day. No reports of chest pain, shortness of breath, or palpitations. Patient is on room air. Discussed with the patient and instructed the patient to continue using the incentive spirometer at least 10 times every hour while awake. Patient states he has been up and working with physical therapy. No reports of nausea or vomiting and patient is tolerating diet. Patient will be going to rehab today for continued PT/OT therapy. Case management and social work are following. Objective - Vital Signs Vital signs: Vital Signs Temp 98.2 F 07/21/19 04:17 Pulse 96 07/21/19 04:17 Resp 16 07/21/19 04:17 BP 113/55 07/21/19 04:17 Pulse Ox 95 07/21/19 04:17 Intake & Output 07/20/19 07/21/19 07/21/19 18:59 06:59 18:59 Output Total 1127 600 Balance -1127 -600 Output: Urine 1125 600 Uretheral (Lang) 525 Stool 2 Other: Voiding Method Indwelling Catheter Indwelling Catheter # Voids 1 # Bowel Movements 1 - Exam GENERAL: The patient is alert and oriented x3, not in any acute distress. Well developed, well nourished. HEENT: Pupils are round and equally reacting to light. EOMI. No scleral icterus. No conjunctival pallor. Normocephalic, atraumatic. No pharyngeal erythema. No thyromegaly. CARDIOVASCULAR: S1 and S2 present. No murmurs, rubs, or gallops. Tachycardic regular rhythm PULMONARY: Chest is clear to auscultation, no wheezing or crackles. ABDOMEN: Soft, nontender, nondistended, normoactive bowel sounds. No palpable organomegaly. MUSCULOSKELETAL: No joint swelling or deformity. EXTREMITIES: No cyanosis, clubbing, or pedal edema. NEUROLOGICAL: Gross neurological examination did not reveal any focal deficits. SKIN: No rashes. - Labs CBC & Chem 7: 07/20/19 09:11 07/21/19 09:17 Labs: Abnormal Lab Results - Last 24 Hours (Table) 07/20/19 07/20/19 07/20/19 Range/Units 11:33 17:05 20:08 Glucose (74-99) mg/dL POC Glucose (mg/dL) 212 H 256 H 233 H (75-99) mg/dL Calcium (8.4-10.2) mg/dL 07/21/19 07/21/19 Range/Units 06:48 09:17 Glucose 134 H (74-99) mg/dL POC Glucose (mg/dL) 112 H (75-99) mg/dL Calcium 7.1 L (8.4-10.2) mg/dL Assessment and Plan Assessment: -Acute renal failure: Secondary to hypotension and prerenal azotemia from hypotension. Improved, current creatinine 0.84 -Sinus tachycardia can be still secondary to intravascular volume depletion. Patient remains on metoprolol and is increased to 50 mg twice daily. 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 Will continue to monitor blood sugars closely. -Hypertension holding off anti-hypertensive medications secondary to per ioperative hypotension which is expected. -TIA in the past -Colonic mass for which patient underwent colectomy with Dr. Hernandez -History of melanoma
--- NOTE | 2019-07-21 11:46 | P.PN ---
Progress Note - Text Progress Note Date: 07/21/19 Patient feels slightly better today. He's had flatus and a bowel movement. His Lang catheter is still in place due to urinary retention. On exam his vital signs are stable. His abdomen soft. Patient was Lang catheter removed today. We discussed the discharge home tomorrow.
[2019-07-21 12:18] LABS: Glucose,Whole Blood 158 mg/dL (75-99)
[2019-07-21 12:33] LABS: Basophils % (A) 0 %; Eosinophils % (A) 0 %; HCT 25.4 % (39.0-53.0); HGB 8.2 gm/dL (13.0-17.5); Hypochromasia Slight; Lymphocytes # (A) 0.3 k/uL (1.0-4.8); Lymphocytes % (A) 4 %; MCH 29.1 pg (25.0-35.0); MCHC 32.5 g/dL (31.0-37.0); MCV 89.8 fL (80.0-100.0); Mean Platelet Volume 7.1; Monocytes # (A) 0.5 k/uL (0-1.0); Monocytes % (A) 6 %; Neutrophils # (A) 7.1 k/uL (1.3-7.7); Neutrophils % (A) 89 %; Platelet Count 220 k/uL (150-450); Poikilocytosis Slight; RBC 2.83 m/uL (4.30-5.90); RDW 14.2 % (11.5-15.5)
[2019-07-21 16:57] LABS: Glucose,Whole Blood 251 mg/dL (75-99)
[2019-07-21 20:09] LABS: Glucose,Whole Blood 275 mg/dL (75-99)
[2019-07-21] MEDS: QUEtiapine 50 MG TAB PO SCH (21:49)
[2019-07-21] MEDS: METOPROLOL TARTRATE 50 MG TAB PO SCH (21:49)
[2019-07-21] MEDS: INSULIN DETEMIR (LEVEMIR) 100 UNIT/ML SYR SQ SCH (21:50)
[2019-07-22] MEDS: HEPARIN SODIUM,PORCINE 5,000 UNIT/ML 1 ML VIAL SQ SCH ×4 (00:43→23:24)
[2019-07-22 07:10] LABS: Glucose,Whole Blood 135 mg/dL (75-99)
[2019-07-22] MEDS: FAMOTIDINE 20 MG/2 ML VIAL IV SCH (08:13)
[2019-07-22] MEDS: TAMSULOSIN 0.4 MG CAP.ER.24H PO SCH (08:13)
[2019-07-22] MEDS: LINAGLIPTIN 5 MG TABLET PO SCH (08:13)
[2019-07-22] MEDS: ASPIRIN 81 MG PO SCH (08:13)
[2019-07-22] MEDS: METOPROLOL TARTRATE 50 MG TAB PO SCH ×2 (08:13→21:57)
[2019-07-22] MEDS: glipiZIDE 10 MG TAB PO SCH ×2 (08:13→17:36)
[2019-07-22] MEDS: INSULIN ASPART (NovoLOG) 100 UNIT/ML VIAL SQ SCH ×4 (08:14→21:56)
[2019-07-22 10:54] LABS: Glucose,Whole Blood 147 mg/dL (75-99)
[2019-07-22] MEDS: SODIUM CHLORIDE 0.9% 1,000 ML IV SCH (12:47)
--- NOTE | 2019-07-22 13:19 | P.PN ---
Subjective Progress Note Date: 07/22/19 Principal diagnosis: No overnight events patient is clinically doing well patient will undergo colectomy today his blood pressures well controlled. 07/17/2019 Patient is status post right-sided hemicolectomy. Biopsy results are pending. Patient has colon cancer. Patient is bit hypotensive leading to acute renal failure patient is receiving lactated Ringer's which will be changed to normal saline because of hyperkalemia. His blood sugars are elevated as well continue to monitor and patient will be started on long-acting insulin or glyburide. Everything was discontinued because of hypotension leading to acute renal failure 07/18/2019 Patient's blood sugars are very high long-acting insulin will be added to his regimen, and is passing gas did not move his bowels yet. 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 Patient need to be fluid restricted although will continue with IV fluids as patient is still tachycardic patient will be started on metoprolol and I'll order a d-dimer TSH and a chest x-ray further management depending on these tests. Constitutional: Denied any fatigue denied any fever. Cardio vascular: denied any chest pain, palpitations Gastrointestinal denied any nausea vomiting Pulmonary: Denied any shortness of breath cough Neurologic denied any new focal deficits 07/19/2019 Patient is seen and evaluated today and remains quite lethargic but is arousable. Patient is to have epidural pump removed today. Discussed with patient about increasing activity as tolerated. Also discussed with the patient at length about continuing to use the incentive spirometer at least 10 times every hour while awake. Patient underwent CTA yesterday which shows a trace of pericardial effusion along with a trace of bilateral pleural effusions and multifocal atelectasis and nondiagnostic of pulmonary embolism. Pulmonary is following. Currently no reports of chest pain, shortness of breath, or palpita tions. Patient is afebrile. No reports of nausea or vomiting and patient is tolerating diet. Patient's diet is being advanced to full liquids today. Patient continues to be slightly tachycardic in the 110's to 120s and was initiated on metoprolol. Will continue to follow along closely. 07/20/2019 Patient is seen in follow-up today much more awake and alert and has just had a bowel movement and is incontinent. Patient had some urinary retention status post Lang removal yesterday and the Lang was replaced today. Flomax being initiated. PT/OT order placed to evaluate the patient. When talking with the patient about discharge planning he states he will be returning home with family. Currently no reports of chest pain, shortness of breath, or palpitations. Patient is currently on 2 L of oxygen although does not normally wear this at home. Instructed to increase activity as tolerated. Amalia following. Patient is afebrile. Patient remains slightly tachycardic in the low 100s. Will continue to monitor vital signs closely. No reports of nausea or vomiting and patient is tolerating diet. 07/21/2019 Patient is seen in follow-up today alert, awake and oriented 3 and sitting up in the chair. Patient continues to be slightly tachycardic and metoprolol will be increased to 50 mg twice a day. No reports of chest pain, shortness of breath, or palpitations. Patient is on room air. Discussed with the patient and instructed the patient to continue using the incentive spirometer at least 10 times every hour while awake. Patient states he has been up and working with physical therapy. No reports of nausea or vomiting and patient is tolerating diet. Patient will be going to rehab today for continued PT/OT therapy. Case management and social work are following. 07/22/2019 Patient is seen in follow-up today sitting up in the chair with no acute overnight issues. Patient has been increasing activity as tolerated. Metoprolol was increased to 50 mg twice daily yesterday and tolerating well. Heart rate in the 90s. No reports of chest pain, shortness of breath, or palpitations. Patient at 96% on room air and saturating well. Patient is afebrile. No reports of nausea or vomiting and patient is tolerating diet. Patient will be receiving a Mediport for near future oncology treatments. Patient to continue working with PT/OT for strength and mobility. Plan is for possible discharge to [facility] status post Mediport placement tomorrow. Objective - Vital Signs Vital signs: Vital Signs Temp 98.2 F 07/22/19 04:58 Pulse 90 07/22/19 04:58 Resp 18 07/22/19 04:58 BP 145/66 07/22/19 04:58 Pulse Ox 96 07/22/19 04:58 Intake & Output 07/21/19 07/22/19 07/22/19 18:59 06:59 18:59 Intake Total 360 725 Output Total 601 Balance -241 725 Intake: Intake, IV Titration 725 Amount Sodium Chloride 0.9% 1, 725 000 ml @ 75 mls/hr IV . [id number] [facility] Rx#:[id number] Oral 360 Output: Urine 600 Stool 1 Other: Voiding Method Indwelling Catheter Bedside Commode # Voids 1 3 # Bowel Movements 2 - Exam GENERAL: The patient is alert and oriented x3, not in any acute distress. Well developed, well nourished. HEENT: Pupils are round and equally reacting to light. EOMI. No scleral icterus. No conjunctival pallor. Normocephalic, atraumatic. No pharyngeal erythema. No thyromegaly. CARDIOVASCULAR: S1 and S2 present. No murmurs, rubs, or gallops. Tachycardic regular rhythm PULMONARY: Chest is clear to auscultation, no wheezing or crackles. ABDOMEN: Soft, nontender, nondistended, normoactive bowel sounds. No palpable organomegaly. MUSCULOSKELETAL: No joint swelling or deformity. EXTREMITIES: No cyanosis, clubbing, or pedal edema. NEUROLOGICAL: Gross neurological examination did not reveal any focal deficits. SKIN: No rashes. - Labs CBC & Chem 7: 07/21/19 11:56 07/21/19 09:17 Labs: Abnormal Lab Results - Last 24 Hours (Table) 07/21/19 07/21/19 07/21/19 Range/Units 11:56 12:14 16:55 RBC 2.83 L (4.30-5.90) m/uL Hgb 8.2 L (13.0-17.5) gm/dL Hct 25.4 L (39.0-53.0) % Lymphocytes # 0.3 L (1.0-4.8) k/uL POC Glucose (mg/dL) 158 H 251 H (75-99) mg/dL 07/21/19 07/22/19 07/22/19 Range/Units 20:08 07:09 10:52 RBC (4.30-5.90) m/uL Hgb (13.0-17.5) gm/dL Hct (39.0-53.0) % Lymphocytes # (1.0-4.8) k/uL POC Glucose (mg/dL) 275 H 135 H 147 H (75-99) mg/dL Assessment and Plan Assessment: -Acute renal failure: Secondary to hypotension and prerenal azotemia from hypotension. Improved, current creatinine 0.84 -Sinus tachycardia can be still secondary to intravascular volume depletion. Heart rate is 90s. 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 Will continue to monitor blood sugars closely. -Hypertension will resume appropriate home medications -TIA in the past -Colonic mass for which patient underwent colectomy with Dr. Hernandez -History of melanoma
[2019-07-22 17:02] LABS: Glucose,Whole Blood 225 mg/dL (75-99)
[2019-07-22] MEDS: amLODIPine 5 MG TAB PO SCH (17:36)
[2019-07-22 20:07] LABS: Glucose,Whole Blood 226 mg/dL (75-99)
[2019-07-22] MEDS: FAMOTIDINE 20 MG TAB PO SCH (21:56)
[2019-07-22] MEDS: INSULIN DETEMIR (LEVEMIR) 100 UNIT/ML SYR SQ SCH (21:56)
[2019-07-22] MEDS: QUEtiapine 50 MG TAB PO SCH (21:57)
[2019-07-23] MEDS: ACETAMINOPHEN TAB 325 MG TAB PO PRN ×2 (00:26→07:41)
[2019-07-23] MEDS: HYDROcodone/APAP 5-325MG 1 EACH TAB PO PRN ×2 (03:21→12:27)
[2019-07-23 07:25] LABS: Glucose,Whole Blood 77 mg/dL (75-99)
[2019-07-23] MEDS ORDERED: SODIUM CHLORIDE 0.9% 2,000 ML IV ONE (08:23)
[2019-07-23] MEDS ORDERED: DEXTROSE 50% SYRINGE 50 ML IVP STA (08:24)
[2019-07-23 08:28] LABS: Glucose,Whole Blood 73 mg/dL (75-99)
[2019-07-23 09:19] LABS: Albumin 1.6 g/dL (3.5-5.0); Total Bilirubin 1.4 mg/dL (0.2-1.3); Total Protein 3.9 g/dL (6.3-8.2)
[2019-07-23 09:29] LABS: Glucose,Whole Blood 137 mg/dL (75-99)
[2019-07-23] MEDS: HEPARIN SODIUM,PORCINE 5,000 UNIT/ML 1 ML VIAL SQ SCH (09:37)
[2019-07-23] MEDS: glipiZIDE 10 MG TAB PO SCH (09:37)
[2019-07-23] MEDS: INSULIN ASPART (NovoLOG) 100 UNIT/ML VIAL SQ SCH ×2 (09:37→12:20)
[2019-07-23] MEDS: METOPROLOL TARTRATE 50 MG TAB PO SCH (09:38)
[2019-07-23] MEDS: LINAGLIPTIN 5 MG TABLET PO SCH (09:38)
[2019-07-23 09:45] LABS: HCT 23.8 % (39.0-53.0); HGB 7.6 gm/dL (13.0-17.5); Hypochromasia Slight; MCH 28.6 pg (25.0-35.0); MCHC 32.1 g/dL (31.0-37.0); MCV 88.9 fL (80.0-100.0); Mean Platelet Volume 7.7; Platelet Count 194 k/uL (150-450); Poikilocytosis Slight; RBC 2.67 m/uL (4.30-5.90); RDW 14.6 % (11.5-15.5)
[2019-07-23 10:12] LABS: Band Neutrophils % 21 %; Lymphocytes # (M) 0.28 k/uL (1.0-4.8); Metamyelocytes # (M) 0.32 k/uL (0); Metamyelocytes % 7 %; Monocytes # (M) 0.14 k/uL (0-1.0); Myelocytes # (M) 0.14 k/uL (0); Myelocytes % 3 %; Neutrophils % (M) 61 %; Nucleated Red Blood Cells 2 /100 WBC (0-0); Total Cells Counted 200; WBC 4.6 k/uL (3.8-10.6)
[2019-07-23 10:13] LABS: Polychromasia Present
--- NOTE | 2019-07-23 10:52 | XR ---
EXAMINATION TYPE: XR chest 1V portable DATE OF EXAM: 07/23/2019 HISTORY: Shortness of breath. COMPARISON: 07/18/2019 TECHNIQUE: Single view of the chest is submitted. FINDINGS: Demonstrated are scattered senescent parenchymal change. Increased basilar densities may reflect underlying pneumonia. Correlate clinically and progress studi es are recommended. The heart is stable. Hilar and mediastinal structures are within normal limits. Degenerative changes are seen of the dorsal spine. IMPRESSION: 1. Increased basilar densities may reflect underlying pneumonia. Correlate clinically and progress s tudies are recommended.
[2019-07-23 11:10] LABS: Glucose,Whole Blood 102 mg/dL (75-99)
[2019-07-23] MEDS ORDERED: SODIUM CHLORIDE 0.9% 1,000 ML IV ONE ×3 (11:27→15:54)
--- NOTE | 2019-07-23 12:01 | P.PN ---
Subjective Progress Note Date: 07/23/19 Principal diagnosis: No overnight events patient is clinically doing well patient will undergo colectomy today his blood pressures well controlled. 07/17/2019 Patient is status post right-sided hemicolectomy. Biopsy results are pending. Patient has colon cancer. Patient is bit hypotensive leading to acute renal failure patient is receiving lactated Ringer's which will be changed to normal saline because of hyperkalemia. His blood sugars are elevated as well continue to monitor and patient will be started on long-acting insulin or glyburide. Everything was discontinued because of hypotension leading to acute renal failure 07/18/2019 Patient's blood sugars are very high long-acting insulin will be added to his regimen, and is passing gas did not move his bowels yet. 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 Patient need to be fluid restricted although will continue with IV fluids as patient is still tachycardic patient will be started on metoprolol and I'll order a d-dimer TSH and a chest x-ray further management depending on these tests. Constitutional: Denied any fatigue denied any fever. Cardio vascular: denied any chest pain, palpitations Gastrointestinal denied any nausea vomiting Pulmonary: Denied any shortness of breath cough Neurologic denied any new focal deficits 07/19/2019 Patient is seen and evaluated today and remains quite lethargic but is arousable. Patient is to have epidural pump removed today. Discussed with patient about increasing activity as tolerated. Also discussed with the patient at length about continuing to use the incentive spirometer at least 10 times every hour while awake. Patient underwent CTA yesterday which shows a trace of pericardial effusion along with a trace of bilateral pleural effusions and multifocal atelectasis and nondiagnostic of pulmonary embolism. Pulmonary is following. Currently no reports of chest pain, shortness of breath, or palpita tions. Patient is afebrile. No reports of nausea or vomiting and patient is tolerating diet. Patient's diet is being advanced to full liquids today. Patient continues to be slightly tachycardic in the 110's to 120s and was initiated on metoprolol. Will continue to follow along closely. 07/20/2019 Patient is seen in follow-up today much more awake and alert and has just had a bowel movement and is incontinent. Patient had some urinary retention status post Lang removal yesterday and the Lang was replaced today. Flomax being initiated. PT/OT order placed to evaluate the patient. When talking with the patient about discharge planning he states he will be returning home with family. Currently no reports of chest pain, shortness of breath, or palpitations. Patient is currently on 2 L of oxygen although does not normally wear this at home. Instructed to increase activity as tolerated. Amalia following. Patient is afebrile. Patient remains slightly tachycardic in the low 100s. Will continue to monitor vital signs closely. No reports of nausea or vomiting and patient is tolerating diet. 07/21/2019 Patient is seen in follow-up today alert, awake and oriented 3 and sitting up in the chair. Patient continues to be slightly tachycardic and metoprolol will be increased to 50 mg twice a day. No reports of chest pain, shortness of breath, or palpitations. Patient is on room air. Discussed with the patient and instructed the patient to continue using the incentive spirometer at least 10 times every hour while awake. Patient states he has been up and working with physical therapy. No reports of nausea or vomiting and patient is tolerating diet. Patient will be going to rehab today for continued PT/OT therapy. Case management and social work are following. 07/22/2019 Patient is seen in follow-up today sitting up in the chair with no acute overnight issues. Patient has been increasing activity as tolerated. Metoprolol was increased to 50 mg twice daily yesterday and tolerating well. Heart rate in the 90s. No reports of chest pain, shortness of breath, or palpitations. Patient at 96% on room air and saturating well. Patient is afebrile. No reports of nausea or vomiting and patient is tolerating diet. Patient will be receiving a Mediport for near future oncology treatments. Patient to continue working with PT/OT for strength and mobility. Plan is for possible discharge to ECF status post Mediport placement tomorrow. 07/23/2019 Patient is seen and evaluated in follow-up today severely hypotensive in the 70s systolic, tachycardic, febrile, increasing shortness of breath. Blood pressure and heart rate medications have been on hold. Patient also had low blood sugars in the 70s as he was nothing by mouth for a Mediport placement today which is being canceled. An A team was called and patient is being transferred to the stepdown unit. Patient was given 2-3 L of fluids with no real improvement in hypotension. Patient received oral Tylenol and temp went down to 100.3 from 102.2. Lactic acid was ordered and pending at this time. Sodium this morning was 134 and potassium was 3.0 and will be replaced. Creatinine slightly elev ated at 1.65. Halcion came back critically low at 6.0. Patient did receive an amp of D50 and current blood sugar is 102. Patient is alert and oriented 3. No reports of chest pain or palpitations. Patient states he is having some shortness of breath and is currently on 5 L of oxygen and is 98%. No reports of nausea or vomiting and patient has been nothing by mouth as mentioned previously. Patient will be transferred to selective unit and will be monitored closely. Influenza and RSV testing is pending at this time. Objective - Vital Signs Vital signs: Vital Signs Temp 102.2 F H 07/23/19 07:20 Pulse 128 H 07/23/19 09:22 Resp 22 07/23/19 09:22 BP 93/58 07/23/19 09:22 Pulse Ox 98 07/23/19 09:22 Intake & Output 07/22/19 07/23/19 07/23/19 18:59 06:59 18:59 Output Total 603 600 20 Balance -603 -600 -20 Output: Urine 600 600 20 Straight 600 20 Stool 3 Other: Voiding Method Bedside Commode Bedside Commode # Voids 3 - Exam GENERAL: The patient is alert and oriented x3, not in any acute distress. Well developed, well nourished. HEENT: Pupils are round and equally reacting to light. EOMI. No scleral icterus. No conjunctival pallor. Normocephalic, atraumatic. No pharyngeal erythema. No thyromegaly. CARDIOVASCULAR: S1 and S2 present. No murmurs, rubs, or gallops. Tachycardic regular rhythm as noted on EKG PULMONARY: Diminished breath sounds at the bases with no wheezing or rhonchi noted. ABDOMEN: Soft, nontender, nondistended, normoactive bowel sounds. No palpable organomegaly. MUSCULOSKELETAL: No joint swelling or deformity. EXTREMITIES: No cyanosis, clubbing, or pedal edema. NEUROLOGICAL: Gross neurological examination did not reveal any focal deficits. SKIN: No rashes. - Labs CBC & Chem 7: 07/23/19 08:52 07/23/19 08:52 Labs: Abnormal Lab Results - Last 24 Hours (Table) 07/22/19 07/22/19 07/23/19 Range/Units 17:01 20:06 08:07 RBC (4.30-5.90) m/uL Hgb (13.0-17.5) gm/dL Hct (39.0-53.0) % Lymphocytes # (Manual) (1.0-4.8) k/uL Metamyelocytes # (Man) (0) k/uL Myelocytes # (Manual) (0) k/uL Nucleated RBCs (0-0) /100 WBC Sodium (137-145) mmol/L Potassium (3.5-5.1) mmol/L Carbon Dioxide (22-30) mmol/L BUN (9-20) mg/dL Creatinine (0.66-1.25) mg/dL Glucose (74-99) mg/dL POC Glucose (mg/dL) 225 H 226 H 73 L (75-99) mg/dL Calcium (8.4-10.2) mg/dL Total Bilirubin (0.2-1.3) mg/dL Alkaline Phosphatase (38-126) U/L Total Protein (6.3-8.2) g/dL Albumin (3.5-5.0) g/dL 07/23/19 07/23/19 07/23/19 Range/Units 08:52 08:52 09:20 RBC 2.67 L (4.30-5.90) m/uL Hgb 7.6 L (13.0-17.5) gm/dL Hct 23.8 L (39.0-53.0) % Lymphocytes # (Manual) 0.28 L (1.0-4.8) k/uL Metamyelocytes # (Man) 0.32 H (0) k/uL Myelocytes # (Manual) 0.14 H (0) k/uL Nucleated RBCs 2 H (0-0) /100 WBC Sodium 134 L (137-145) mmol/L Potassium 3.0 L (3.5-5.1) mmol/L Carbon Dioxide 21 L (22-30) mmol/L BUN 21 H (9-20) mg/dL Creatinine 1.65 H (0.66-1.25) mg/dL Glucose 188 H (74-99) mg/dL POC Glucose (mg/dL) 137 H (75-99) mg/dL Calcium 6.0 L* (8.4-10.2) mg/dL Total Bilirubin 1.4 H (0.2-1.3) mg/dL Alkaline Phosphatase 29 L (38-126) U/L Total Protein 3.9 L (6.3-8.2) g/dL Albumin 1.6 L (3.5-5.0) g/dL 07/23/19 Range/Units 11:05 RBC (4.30-5.90) m/uL Hgb (13.0-17.5) gm/dL Hct (39.0-53.0) % Lymphocytes # (Manual) (1.0-4.8) k/uL Metamyelocytes # (Man) (0) k/uL Myelocytes # (Manual) (0) k/uL Nucleated RBCs (0-0) /100 WBC Sodium (137-145) mmol/L Potassium (3.5-5.1) mmol/L Carbon Dioxide (22-30) mmol/L BUN (9-20) mg/dL Creatinine (0.66-1.25) mg/dL Glucose (74-99) mg/dL POC Glucose (mg/dL) 102 H (75-99) mg/dL Calcium (8.4-10.2) mg/dL Total Bilirubin (0.2-1.3) mg/dL Alkaline Phosphatase (38-126) U/L Total Protein (6.3-8.2) g/dL Albumin (3.5-5.0) g/dL Assessment and Plan Assessment: -Acute renal failure: Secondary to hypotension and prerenal azotemia from hypotension. Current creatinine 1.65. -Sinus tachycardia can be still secondary to intravascular volume depletion. Heart rate is 90s. Patient is on metoprolol 50 mg twice daily. 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 Will continue to monitor blood sugars closely. Blood sugar 77 this morning and given an amp of D50 as patient was diaphoretic and experiencing signs of hypoglycemia -Hypertension: Current home medications on hold due to hypotension -TIA in the past -Colonic mass for which patient underwent colectomy with Dr. Hernandez -History of melanoma Plan: Patient is being transferred to the selective unit for closer monitoring as patient became hypotensive, febrile, tachycardic, and severely dyspneic requiring 5 L of oxygen. Repeat chest x-ray done showing increased basilar densities with possible underlying pneumonia. Patient received 2-3 L of fluid boluses and remains hypotensive of 70 systolic. Fever trending down. Influenza and RSV testing are pending at this time. Further recommendations to follow. Will continue to follow along with surgery.
[2019-07-23] MEDS: TAMSULOSIN 0.4 MG CAP.ER.24H PO SCH (12:19)
[2019-07-23] MEDS: ASPIRIN 81 MG PO SCH (12:20)
[2019-07-23] MEDS: FAMOTIDINE 20 MG TAB PO SCH (12:20)
[2019-07-23] MEDS ORDERED: VANCOMYCIN IV PER PHARMACY 1 EACH MISC MISCELLANE PRN (12:44)
[2019-07-23] MEDS ORDERED: LACTATED RINGERS 1,000 ML IV SCH (12:48)
[2019-07-23] MEDS: amLODIPine 5 MG TAB PO SCH (12:49)
[2019-07-23] MEDS ORDERED: VANCOMYCIN 1,750 MG in SODIUM CHLORIDE 0.9% 500 ML 500 ML IVPB SCH (13:00)
[2019-07-23 13:10] VITALS: BMI 32.5
--- NOTE | 2019-07-23 13:50 | P.PN ---
Progress Note - Text Progress Note Date: 07/23/19 The patient was transferred from the fifth floor to the third floor due to hypotension. Apparently he developed some hypotension and fever last night. His systolic blood pressures in the 70s to 90 range. Patient states that he currently does not have any significant abdominal pain. He appears to be short of breath. On exam his blood pressure is in the 80s systolic. He appears to With respiratory rate above 30. His O2 sats approximately 93% on 5 L nasal cannula Abdomen is soft. There is no evidence of any rebound or guarding. Patient has received a fluid bolus. Due to his shortness of breath he'll be transferred to the ICU. I discussed the case with Dr. Villarreal. Patient will undergo computed tomography scan of the chest abdomen pelvis to that for possible sepsis source.
[2019-07-23] MEDS: POTASSIUM CHLORIDE 10 MEQ in WATER FOR INJECTION 1 100ML.BAG IVPB SCH ×2 (14:35→16:06)
[2019-07-23] MEDS ORDERED: NOREPINEPHRINE 32 MG in SODIUM CHLORIDE 0.9% 218 ML IV SCH (15:00)
[2019-07-23] MEDS: IOPAMIDOL CONTRAST (ORAL USE) VIAL PO PRN ×2 (15:20→16:05)
[2019-07-23 15:51] LABS: Glucose,Whole Blood 71 mg/dL (75-99)
--- NOTE | 2019-07-23 15:51 | XR ---
EXAMINATION TYPE: XR chest 1V confirm line [facility] DATE OF EXAM: 07/23/2019 COMPARISON: 07/23/2019 INDICATION: Central line placement TECHNIQUE: Single frontal view of the chest is obtained. FINDINGS: The heart size is normal. The pulmonary vasculature is normal. Some mild bibasilar atelectasis present. Small left pleural effusion may be present. There is placement of a left central venous catheter with tip in the proximal right atrium. There is a curvilinear density at the right lung base could be some atelectasis. Small amount of free air adjacent to the liver could be considered as well. IMPRESSION: 1. Clinical consideration for pneumoperitoneum is recommended. CT chest abdomen and pelvis is current ly scheduled. 2. Suggestion of mild bibasilar atelectasis. A [place] level critical message alert has been initiated for Ahmet Villarreal MD via the [employer] Critical Results System on 07/23/2019 3:48 PM. This message alert has been sent to Ahmet Villarreal MD via the preferences provided by the clinician for the receipt of Radiology Critical Findings. [facility] ID [id number].
[2019-07-23] MEDS ORDERED: PIPERACILLIN-TAZOBACTAM 3.375 GM in SODIUM CHLORIDE 0.9% 100 ML IVPB SCH (16:00)
[2019-07-23] MEDS ORDERED: SODIUM CHLORIDE 0.9% 1,000 ML IV SCH (16:00)
[2019-07-23 16:10] VITALS: TEMP 98.2
--- NOTE | 2019-07-23 16:21 | P.PN ---
<Amarilys Mancini - Last Filed: 07/23/19 16:21> Subjective Progress Note Date: 07/23/19 Principal diagnosis: Adenocarcinoma of the colon, status post colectomy This is a very pleasant 73-year-old gentleman who follows with Dr. Hines as his primary care provider. He has a history of CVA/TIA, hearing disorder, hypertension, recent melanoma removed from the left cheek and right ear at the [facility] approximate 8 weeks ago. He was also found to have a partial obstructing tumor at the hepatic flexure/right colonic mass. He presented here on 07/15/2019 for an elective colectomy. Pathology pending. Start a he was having some complaints of increasing shortness of breath. A chest x-ray revealed no acute pulmonary process. There is evidence of cardiomegaly. CT angiogram revealed no evidence of pulmonary embolus. There was noted moderate to severe coronary artery calcification and trace paracardial effusion. There was noted tree and bud opacity in the right lower lobe isaac picious for infectious bronchiolitis. Pneumonia or atypical infection is within the differential. There is multifocal atelectasis seen. White count 3.5. Hemoglobin 8.6. Sodium 135. Potassium 4.1. Creatinine 1.15. He is seen in consultation today on the regular medical floor. He is currently resting quite comfortably in bed. Awake and alert in no acute distress. His pain is well managed with epidural catheter of fentanyl. He is working with the incentive spirometer only pulling approximately 500 ML's currently. He is maintaining good O2 saturations in the mid 90s on 2 L/m per nasal cannula. He's been afebrile. Blood pressure stable. Somewhat tachycardic. The patient is seen today 07/20/2019 in follow-up on the regular medical floor. He is sitting up in bed. Awake and alert in no acute distress. No shortness of breath. No cough. No congestion. Maintaining good O2 saturations in the 90s on room air. He's afebrile. Hemodynamically stable. Working well with the in centive spirometer. White count 6.9. Hemoglobin 8.5. Creatinine 0.92. His abdominal dressing is dry and intact. He is having bowel movements. The patient is seen today 07/23/2019 after developing hypotension, diaphoresis and shortness of breath along with a fever on the regular medical floor. He was subsequently A teamed and transferred to the selective care unit. Despite 3 L of fluid resuscitation he remained quite hypotensive and transferred to the ICU now. He is currently awake and alert and 3. He is dyspneic with conversation. He is stating he would not go on life support or have CPR performed if he were to deteriorate. He states he has advanced directives in place. He is currently on a nonrebreather mask with oxygen saturations in the 90s. Blood pressure 72/44. He has had only 50 mL of urine output since this morning. He had a T-max this morning of 102.6. He has received acetaminophen and is currently 98.2. His abdomen is distended. His dressing is dry and intact. He is having some mild abdominal discomfort. Morning labs revealed a white count of 4.6. Hemoglobin 7.6. Platelets 194. Lymphocytes 0.28. Sodium 134. Potassium 3.0. Bicarb 21. Creatinine 1.68. Calcium 6.0. AST 31. ALT 22. Influenza screen negative. RSV negative. CoVID 19 testing sent today. Objective - Vital Signs Vital signs: Vital Signs Temp 100.6 F H 07/23/19 12:24 Pulse 129 H 07/23/19 12:24 Resp 18 07/23/19 12:24 BP 81/50 07/23/19 12:24 Pulse Ox 96 07/23/19 12:24 Intake & Output 07/22/19 07/23/19 07/23/19 18:59 06:59 18:59 Output Total 603 600 20 Balance -603 -600 -20 Weight 100 kg Output: Urine 600 600 20 Straight 600 20 Stool 3 Other: Voiding Method Bedside Commode Bedside Commode # Voids 3 - Exam GENERAL EXAM: Alert, pleasant 73-year-old gentleman, 100% nonrebreather in mild respiratory distress. HEAD: Normocephalic. EYES: Normal reaction of pupils, equal size. NOSE: Clear with pink turbinates. THROAT: No erythema or exudates. NECK: No masses, no JVD. CHEST: No chest wall deformity. LUNGS: Equal air entry with few scattered rhonchi bilaterally. CVS: S1 and S2 normal with no audible murmur, regular rhythm. ABDOMEN: Val intact. There is some brown fluid draining from the top of the incision. Abdomen distended. SPINE: No scoliosis or deformity SKIN: No rashes CENTRAL NERVOUS SYSTEM: No focal deficits, tone is normal in all 4 extremities. EXTREMITIES: There is no peripheral edema. No clubbing, no cyanosis. Peripheral pulses are intact. - Labs CBC & Chem 7: 07/23/19 08:52 07/23/19 08:52 Labs: Abnormal Lab Results - Last 24 Hours (Table) 07/22/19 07/22/19 07/23/19 Range/Units 17:01 20:06 08:07 RBC (4.30-5.90) m/uL Hgb (13.0-17.5) gm/dL Hct (39.0-53.0) % Lymphocytes # (Manual) (1.0-4.8) k/uL Metamyelocytes # (Man) (0) k/uL Myelocytes # (Manual) (0) k/uL Nucleated RBCs (0-0) /100 WBC Sodium (137-145) mmol/L Potassium (3.5-5.1) mmol/L Carbon Dioxide (22-30) mmol/L BUN (9-20) mg/dL Creatinine (0.66-1.25) mg/dL Glucose (74-99) mg/dL POC Glucose (mg/dL) 225 H 226 H 73 L (75-99) mg/dL Plasma Lactic Acid Xiang (0.7-2.0) mmol/L Calcium (8.4-10.2) mg/dL Total Bilirubin (0.2-1.3) mg/dL Alkaline Phosphatase (38-126) U/L Total Protein (6.3-8.2) g/dL Albumin (3.5-5.0) g/dL 07/23/19 07/23/19 07/23/19 Range/Units 08:52 08:52 09:20 RBC 2.67 L (4.30-5.90) m/uL Hgb 7.6 L (13.0-17.5) gm/dL Hct 23.8 L (39.0-53.0) % Lymphocytes # (Manual) 0.28 L (1.0-4.8) k/uL Metamyelocytes # (Man) 0.32 H (0) k/uL Myelocytes # (Manual) 0.14 H (0) k/uL Nucleated RBCs 2 H (0-0) /100 WBC Sodium 134 L (137-145) mmol/L Potassium 3.0 L (3.5-5.1) mmol/L Carbon Dioxide 21 L (22-30) mmol/L BUN 21 H (9-20) mg/dL Creatinine 1.65 H (0.66-1.25) mg/dL Glucose 188 H (74-99) mg/dL POC Glucose (mg/dL) 137 H (75-99) mg/dL Plasma Lactic Acid Xiang (0.7-2.0) mmol/L Calcium 6.0 L* (8.4-10.2) mg/dL Total Bilirubin 1.4 H (0.2-1.3) mg/dL Alkaline Phosphatase 29 L (38-126) U/L Total Protein 3.9 L (6.3-8.2) g/dL Albumin 1.6 L (3.5-5.0) g/dL 07/23/19 07/23/19 Range/Units 11:05 11:30 RBC (4.30-5.90) m/uL Hgb (13.0-17.5) gm/dL Hct (39.0-53.0) % Lymphocytes # (Manual) (1.0-4.8) k/uL Metamyelocytes # (Man) (0) k/uL Myelocytes # (Manual) (0) k/uL Nucleated RBCs (0-0) /100 WBC Sodium (137-145) mmol/L Potassium (3.5-5.1) mmol/L Carbon Dioxide (22-30) mmol/L BUN (9-20) mg/dL Creatinine (0.66-1.25) mg/dL Glucose (74-99) mg/dL POC Glucose (mg/dL) 102 H (75-99) mg/dL Plasma Lactic Acid Xiang 4.6 H* (0.7-2.0) mmol/L Calcium (8.4-10.2) mg/dL Total Bilirubin (0.2-1.3) mg/dL Alkaline Phosphatase (38-126) U/L Total Protein (6.3-8.2) g/dL Albumin (3.5-5.0) g/dL Assessment and Plan Assessment: 1 Colonic mass positive for adenocarcinoma status post colectomy, postoperative day #8. He has developed drainage from the superior aspect of his wound. Several sutures removed. Brown liquid draining. Culture sent. Computed tomography scan of the abdomen pending. 2 Dyspnea secondary to atelectasis secondary to above. CT angiogram ruled out pulmonary embolus. There is some tree and bud opacity in the right lower lobe most commonly related infectious bronchiolitis evidence of atelectasis 3 History of melanoma with recent resection of the left cheek and right ear at the [facility] approximately 8 weeks ago 4 History of CVA/TIA 5 Hearing disorder 6 Diabetes mellitus 7 Hypertension Plan: The patient was seen and evaluated by Dr. Villarreal after transfer to the ICU The patient is quite hypotensive. Fluid resuscitation in progress. Triple-lumen catheter and arterial line placed. Add Zosyn and vancomycin He did have an extended conversation with the patient's was quite adamant as is the patient that they do not want resuscitation in the form of CPR or mechanical ventilator. They both are also agreeing that he is not to go back to surgery for fear he will not survive it. They did consent to central and arterial line placement. We'll continue with full supportive care I, the cosigning physician, performed a history & physical examination of the patient. Lungs sounds are clear. Maintaining good O2 saturations in the 90s on room air. I discussed the assessment and plan of care with my nurse practitioner, Amarilys Mancini. I attest to the above consultation as dictated by her. <Ahmet Villarreal - Last Filed: 07/23/19 16:28> Objective - Vital Signs Vital signs: Vital Signs Temp 98.2 F 07/23/19 16:00 Pulse 112 H 07/23/19 16:00 Resp 18 07/23/19 16:00 BP 71/45 07/23/19 16:00 Pulse Ox 98 07/23/19 16:00 Intake & Output 07/22/19 07/23/19 07/23/19 18:59 06:59 18:59 Intake Total 1999 Output Total 603 600 45 Balance -603 -600 1954 Weight 100 kg Intake: Intake, IV Titration 2000 Amount Sodium Chloride 0.9% 1, 2000 000 ml @ 999 mls/hr IV . Q1H1M ONE Rx#:[id number] Output: Urine 600 600 45 Straight 600 20 Stool 3 Other: Voiding Method Bedside Commode Bedside Commode # Voids 3 ABP, PAP, CO, CI - Last Documented Arterial Blood Pressure 77/38 - Labs CBC & Chem 7: 07/23/19 08:52 07/23/19 08:52 Labs: Abnormal Lab Results - Last 24 Hours (Table) 07/22/19 07/22/19 07/23/19 Range/Units 17:01 20:06 08:07 RBC (4.30-5.90) m/uL Hgb (13.0-17.5) gm/dL Hct (39.0-53.0) % Lymphocytes # (Manual) (1.0-4.8) k/uL Metamyelocytes # (Man) (0) k/uL Myelocytes # (Manual) (0) k/uL Nucleated RBCs (0-0) /100 WBC Sodium (137-145) mmol/L Potassium (3.5-5.1) mmol/L Carbon Dioxide (22-30) mmol/L BUN (9-20) mg/dL Creatinine (0.66-1.25) mg/dL Glucose (74-99) mg/dL POC Glucose (mg/dL) 225 H 226 H 73 L (75-99) mg/dL Plasma Lactic Acid Xiang (0.7-2.0) mmol/L Calcium (8.4-10.2) mg/dL Total Bilirubin (0.2-1.3) mg/dL Alkaline Phosphatase (38-126) U/L Total Protein (6.3-8.2) g/dL Albumin (3.5-5.0) g/dL 07/23/19 07/23/19 07/23/19 Range/Units 08:52 08:52 09:20 RBC 2.67 L (4.30-5.90) m/uL Hgb 7.6 L (13.0-17.5) gm/dL Hct 23.8 L (39.0-53.0) % Lymphocytes # (Manual) 0.28 L (1.0-4.8) k/uL Metamyelocytes # (Man) 0.32 H (0) k/uL Myelocytes # (Manual) 0.14 H (0) k/uL Nucleated RBCs 2 H (0-0) /100 WBC Sodium 134 L (137-145) mmol/L Potassium 3.0 L (3.5-5.1) mmol/L Carbon Dioxide 21 L (22-30) mmol/L BUN 21 H (9-20) mg/dL Creatinine 1.65 H (0.66-1.25) mg/dL Glucose 188 H (74-99) mg/dL POC Glucose (mg/dL) 137 H (75-99) mg/dL Plasma Lactic Acid Xiang (0.7-2.0) mmol/L Calcium 6.0 L* (8.4-10.2) mg/dL Total Bilirubin 1.4 H (0.2-1.3) mg/dL Alkaline Phosphatase 29 L (38-126) U/L Total Protein 3.9 L (6.3-8.2) g/dL Albumin 1.6 L (3.5-5.0) g/dL 07/23/19 07/23/19 07/23/19 Range/Units 11:05 11:30 15:50 RBC (4.30-5.90) m/uL Hgb (13.0-17.5) gm/dL Hct (39.0-53.0) % Lymphocytes # (Manual) (1.0-4.8) k/uL Metamyelocytes # (Man) (0) k/uL Myelocytes # (Manual) (0) k/uL Nucleated RBCs (0-0) /100 WBC Sodium (137-145) mmol/L Potassium (3.5-5.1) mmol/L Carbon Dioxide (22-30) mmol/L BUN (9-20) mg/dL Creatinine (0.66-1.25) mg/dL Glucose (74-99) mg/dL POC Glucose (mg/dL) 102 H 71 L (75-99) mg/dL Plasma Lactic Acid Xiang 4.6 H* (0.7-2.0) mmol/L Calcium (8.4-10.2) mg/dL Total Bilirubin (0.2-1.3) mg/dL Alkaline Phosphatase (38-126) U/L Total Protein (6.3-8.2) g/dL Albumin (3.5-5.0) g/dL Assessment and Plan Assessment: This patient got transferred to the intensive care unit. The patient became hypotensive and tachycardic and he became progressively more short of breath. By the time of his arrival to the ICU, the patient was found to be in shock. The Lang catheter was in place and there was no urine output. Systolic blood pressure dropped in the mid 80s. The patient received a total of 3 L of IV fluids in the form of normal saline an additional 2 L were given. No significant response in terms of his urine output. The abdominal wound was checked. The patient had drainage in the upper surgical ALLERGIES. [place] were removed and purulent material was drained from the upper wound area. It took about approximately 4 of the val from the upper wound to drain this purulent material. Cultures were sent. At that point a triple lumen catheter was inserted and post line insertion the chest x-ray showed no evidence of any pneumothorax. There was evidence of pneumoperitoneum. Immediately general surgery was contacted. CAT scan of the abdomen is in progress. I also c ontacted the . I updated on the condition. Unfortunately, the made it very clear to me that she did not want any further surgical intervention. I explained to the that this is a life-threatening situation and short of his surgical intervention, her will pass away. Her response was that even prior to the initial surgery, she had her were contemplating not to undergo the surgery and based on both of their wishes a second surgery is not something that they will accept even if it's a lifesaving procedure. I wanted surgeon to contact the and go over this findings again. I talked to the was the patient and I got the same response. For now would res uscitating the patient IV fluids and antibiotics as the patient was given accommodation Zosyn and vancomycin. Fluids are being administered. The patient is also on pressors and he is on high-dose norepinephrine infusion. This will be a definite mortality short of surgical reexploration and intervention. The patient and his are both made aware of this. no plans for surgical intervention at this point in time based on the patient and his 's wishes. This is a critically care evaluation. This was done in more than 30 minutes excluding time to do any procedures. During this evaluation, triple lumen catheter an outlying catheter was also inserted. Time with Patient: Greater than 30
--- NOTE | 2019-07-23 16:22 | P.PCN ---
Date of Procedure: 07/23/19 Preoperative Diagnosis: Septic shock Postoperative Diagnosis: Septic shock Procedure(s) Performed: Insertion of a triple-lumen and arterial line Anesthesia: local Surgeon: Ahmet Villarreal Estimated Blood Loss (ml): 0 Pathology: none sent Condition: critical Disposition: ICU Operative Findings: Indication: Hemodynamic monitoring/Intravenous access. A time-out was completed verifying correct patient, procedure, site, positioning, and implant(s) or special equipment if applicable. The patient was placed in a dependent position appropriate for triple lumen catheter placement based on the vein to be cannulated. The patient's left chest area was prepped and draped in sterile fashion. 1% Lidocaine was used to anesthetize the surrounding skin area. A triple lumen 9F Cordis catheter was introduced into the left subclacian vein using Seldinger technique. The catheter was threaded smoothly over the guide wire and appropriate blood return was obtained. Each lumen of the catheter was evacuated of air and flushed with sterile saline. The catheter was then sutured in place to the skin and a sterile dressing applied. Perfusion to the extremity distal to the point of catheter insertion was checked and found to be adequate. Indication: Hemodynamic monitoring. A time-out was completed verifying correct patient, procedure, site, positioning, and implant(s) or special equipment if applicable. Allens test was performed to ensure adequate perfusion. The patient right wrist was prepped and draped in sterile fashion. 1% Lidocaine was used to anesthetize the area. An 18G Arrow arterial line was introduced into the right radial artery. The catheter was threaded over the guide wire and the needle was removed with appropriate pulsatile blood return. Blood loss was minimal. The catheter was then sutured in place to the skin and a sterile dressing applied. Perfusion to the extremity distal to the point of catheter insertion was checked and found to be adequate. The patient tolerated the procedure well and there were no complications.
[2019-07-23 17:11] LABS: Glucose,Whole Blood 69 mg/dL (75-99)
--- NOTE | 2019-07-23 17:27 | CT ---
EXAMINATION TYPE: CT ChestAbdPelvis wo con DATE OF EXAM: 07/23/2019 COMPARISON: CT chest 07/18/2019 and abdomen pelvis 06/30/2019 HISTORY: 73-year-old male Sepsis, hypotension. TECHNIQUE: Contiguous axial scanning of the chest, abdomen, and pelvis without IV contrast. Coronal a nd sagittal reconstructions performed. CT DLP: 1572.8 mGycm Automated exposure control for dose reduction was used. FINDINGS: Lack of IV contrast limits assessment of the mediastinal/hilar, vascular structures as well as the so lid abdominal viscera. Further limitation due to scanning with the patient's arms over the chest. CHEST: Heart upper limits of normal in size. Trace pericardial fluid. Aorta normal caliber with mild atherosclerotic arch calcifications and conventional branching anatomy . No thoracic lymphadenopathy identified given above-mentioned limitations. Narrowing of the mid to lower trachea and right greater than left mainstem bronchi and bronchus inter medius. Small right and trace left pleural effusion slightly increased. Increasing dependent adjacent opaciti es at the posterior lung bases ABDOMEN: Interval partial right hemicolectomy. Anterior midline skin angelica are present from the patient's la parotomy with some scattered foci of anterior subcutaneous air. Moderate free intraperitoneal air is present as well as mild abdominopelvic ascites. 4.2 cm loculated fluid within the right lateral peritoneum, refer to axial image 83 and coronal image 40. Along the right-sided ileocolonic anastomosis, there is extension posteriorly to an area of thickened soft tissue, air, and fluid measuring 4.7 cm, axial image 75. This region may have an additional communication extending superiorly and posteriorly, coronal image 44 to an air and fluid collection measuring 8.9 x 7.7 x 7.7 cm, refer to axial image 62 and coronal i mage 89. Oral contrast has made it only to the distal third small bowel level. Limited, noncontrast images of the liver, adrenal glands, right kidney, spleen, and pancreas show no gross abnormality. 3.0 cm left lower pole renal cyst redemonstrated. No definite mesenteric or retroperitoneal lymphadenopathy. PELVIS: Bladder is collapsed. Moderate free fluid tracks into the pelvis. A Lang catheter is present. Prosta te gland measures 5.1 cm wide. No pelvic lymphadenopathy seen. BONES: Generalized anasarca change. Degenerative changes at the SI joints and throughout the lumbar spine.-W ithin the thoracic spine. IMPRESSION: 1. SLIGHT INCREASED SMALL RIGHT AND TRACE LEFT EFFUSIONS WITH INCREASING ADJACENT DEPENDENT OPACITY P ROBABLY REPRESENTING ATELECTASIS. CORRELATION SHOULD BE MADE TO EXCLUDE INFILTRATE RELATING TO INFECT IOUS OR ASPIRATION PNEUMONITIS. 2. SIGNIFICANT NARROWING OF THE RIGHT GREATER THAN LEFT MAINSTEM BRONCHI AND BRONCHUS INTERMEDIUS. CO RRELATE FOR TRACHEOBRONCHOMALACIA. 3. INTERVAL PARTIAL RIGHT HEMICOLECTOMY COMPLICATED BY ANASTOMOTIC LEAK EXTENDING FIRST POSTERIORLY A ND THEN SUPERIORLY ALLOWING FOR MODERATE FREE AIR AND MODERATE ABDOMINOPELVIC ASCITES. RIGHT UPPER QU ADRANT AIR AND FLUID COLLECTION MEASURES UP TO 8.9 CM THOUGH ADDITIONAL ASCITES FLUID AND OTHER AREAS OF FREE AIR ARE PRESENT THROUGHOUT. SURGICAL EVALUATION RECOMMENDED. 4. ALSO, SUSPECT A 4.2 CM EARLY DEVELOPING INTERLOOP ABSCESS WITHIN THE RIGHT LATERAL MESENTERY.
--- NOTE | 2019-07-23 17:29 | P.PN ---
Progress Note - Text Progress Note Date: 07/23/19 Patient's CAT scan shows evidence of free air. The patient's clinical condition has deteriorated. He is on significant amounts of Levophed with systolic blood pressures in the 50-60 range. I discussed the patient's that due to the free air and I believe there is a perforation somewhere in the GI tract. I recommend exploratory laparotomy. Patients does not wish to undergo any further operative intervention. The patient will be made no code, DO NOT RESUSCITATE. I explained that I believe that she will very quickly without any intervention. The patient's had no further questions.
[2019-07-23 18:18] VITALS: BP 80/36; PULSE 110; RESP 27
--- NOTE | 2019-07-30 15:24 | P.CONS ---
History of Present Illness - Reason for Consult Consult date: 07/23/19 Septic shock Requesting physician: Jeremy Hernandez - Chief Complaint abd pain and draiange x 1 day - History of Present Illness Patient is 73-year-old male who was noticed to have a partial obstructing tumor at the hepatic flexure on colonoscopy that was done on 0 07/15/2019 , The patient subsequent did have right colectomy for his right-sided colon tumor, patient post surgery seems to have problem with increasing shortness of breath for the patient did have CT angiogram that was negative for PE the consult for possible right lower lobe pneumonia pulmonary saw the patient and the patient was started on antibiotic therapy for possible pneumonia today the patient noticed to have more abdominal pain and abdominal distention the patient noticed to have slight drainage from his incision patient become hypotensive and tachycardic and more short of breath for the patient be transferred from the ICU with concern for sepsis septic shock infection is was consulted for further recommendation regarding antibiotic therapy, patient of time my evaluation this afternoon has been on high-dose pressors to maintain his blood pressure, the patient had been on a nonrebreather mask he was able to answer some questions has been complaining mostly shortness of breath and abdominal pain however unable to quantify it any further no vomiting or diarrhea has been reported by the nursing staff patient apparently just came back from a CT of abdominal pelvis with report currently pending patient was started on broad-spectrum antibiotic in the form of vancomycin and Zosyn pending investigation and cultures Review of Systems Positive point has been mentioned in the HPI rest of the systems are negative Past Medical History Past Medical History: Cancer, CVA/TIA, Hearing Disorder / Deafness, Hypertension Additional Past Medical History / Comment(s): MELENOMA, "BLOOD CANCER" History of Any Multi-Drug Resistant Organisms: None Reported Past Surgical History: Cholecystectomy, Joint Replacement Additional Past Surgical History / Comment(s): MELENOMA FROM RIGHT EAR AND LEFT CHEEK, RIGHT AND LEFT TOTAL KNEE, BILATERAL CATARACT WITH IMPLANTS Past Anesthesia/Blood Transfusion Reactions: No Reported Reaction Smoking Status: Never smoker - Past Family History Mother Family Medical History: Cancer Medications and Allergies Home Medications Medication Instructions Recorded Confirmed Type Aspirin 81 mg PO DAILY 07/14/19 07/15/19 History Lisinopril [Zestril] 40 mg PO DAILY 07/14/19 07/15/19 History QUEtiapine FUMARATE 50 mg PO HS 07/14/19 07/15/19 History amLODIPine [Norvasc] 5 mg PO DAILY 07/14/19 07/15/19 History glyBURIDE [Diabeta] 10 mg PO AC-BID 07/14/19 07/15/19 History metFORMIN HCL 1,000 mg PO BID 07/14/19 07/15/19 History sitaGLIPtin [Januvia] 100 mg PO DAILY 07/14/19 07/15/19 History Hydrocodone/Acetaminophen [[place] 1 tab PO Q6HR PRN #10 tab 07/16/19 Rx 5-325] Acetaminophen Tab [Tylenol] 650 mg PO Q4HR PRN tab 07/21/19 Rx Benzocaine/Menthol Lozeng [Cepacol 1 each MUCOUS MEM Q1HR PRN lozenge 07/21/19 Rx lozenge] INSULIN ASPART (NovoLOG) [NovoLOG 0 unit SQ ACHS vial 07/21/19 Rx (formulary)] Insulin Detemir (Levemir) [Levemir] 15 unit SQ HS syr 07/21/19 Rx Metoprolol Tartrate [Lopressor] 50 mg PO BID tab 07/21/19 Rx Tamsulosin [Flomax] 0.4 mg PO PC-[id number] cap.er.24h 07/21/19 Rx Allergies Allergy/AdvReac Type Severity Reaction Status Date / Time No Known Allergies Allergy Verified 07/16/19 11:23 Physical Exam Vitals: Vital Signs Temp Pulse Pulse Pulse Pulse Resp BP 07/23/19 18:17 110 H 27 H 07/23/19 17:44 0 L 0 L 07/23/19 17:42 0 L 0 L 07/23/19 17:40 41 L 0 L 07/23/19 17:30 51 L 19 67/41 07/23/19 17:15 101 H 24 6735 07/23/19 17:00 98 22 67/35 07/23/19 16:15 107 H 21 70/47 07/23/19 16:00 98.2 F 112 H 18 71/45 07/23/19 15:45 113 H 32 H 91/46 07/23/19 15:30 112 H 22 89/60 07/23/19 15:15 115 H 80/42 07/23/19 15:00 115 H 79/43 07/23/19 14:50 110 H 26 H 76/44 07/23/19 14:41 113 H 07/23/19 14:30 110 H 27 H 07/23/19 12:24 100.6 F H 129 H 18 07/23/19 11:20 100.2 F H 124 H 22 07/23/19 10:40 130 H 20 07/23/19 10:10 117 H 22 07/23/19 09:40 126 H 26 H 07/23/19 09:22 128 H 22 07/23/19 08:57 96 24 07/23/19 08:10 129 H 22 07/23/19 07:52 125 H 07/23/19 07:25 07/23/19 07:20 102.2 F H 125 H 36 H 07/23/19 07:15 100.7 F H 07/23/19 05:00 99 F 111 H 18 07/23/19 02:11 07/23/19 01:07 18 07/23/19 00:30 BP BP Pulse Ox 07/23/19 18:17 80/36 100 07/23/19 17:44 07/23/19 17:42 07/23/19 17:40 07/23/19 17:30 91 L 07/23/19 17:15 98 07/23/19 17:00 97 07/23/19 16:15 97 07/23/19 16:00 98 07/23/19 15:45 98 07/23/19 15:30 98 07/23/19 15:15 98 07/23/19 15:00 98 07/23/19 14:50 98 07/23/19 14:41 98 07/23/19 14:30 07/23/19 12:24 81/50 96 07/23/19 11:20 71/38 95 07/23/19 10:40 71/44 98 07/23/19 10:10 81/43 92 L 07/23/19 09:40 87/49 91 L 07/23/19 09:22 93/58 98 07/23/19 08:57 85/46 97 07/23/19 08:10 87/49 98 07/23/19 07:52 83/45 95 07/23/19 07:25 96 07/23/19 07:20 81/43 86 L 07/23/19 07:15 07/23/19 05:00 105/52 95 07/23/19 02:11 111/53 07/23/19 01:07 100/50 95 07/23/19 00:30 96/55 Intake and Output 07/23/19 07/23/19 07/24/19 14:59 22:59 06:59 Intake Total 1000 3000 Output Total 20 25 Balance 980 2975 Intake: Intake, IV Titration 1000 3000 Amount Sodium Chloride 0.9% 1, 1000 3000 000 ml @ 999 mls/hr IV . Q1H1M ONE Rx#:[id number] Output: Urine 20 25 Straight 20 Other: Voiding Method Indwelling Catheter Weight 100 kg ABP, PAP, CO, CI - Last 8 Hours Arterial Blood Pressure 17 Arterial Blood Pressure 17 Arterial Blood Pressure 18/ Arterial Blood Pressure 38/28 Arterial Blood Pressure 57/36 Arterial Blood Pressure 77/38 GENERAL DESCRIPTION: Elderly male lying in bed, no distress mild distress with tachypnea and excessive muscle respiration use. HEENT: Shows Pallor , no scleral icterus. Oral mucous membrane is dry. No pharyngeal erythema or thrush NECK: Trachea central, no thyromegaly. LUNGS: Unlabored breathing. Decreased breath sounds at the bases. No wheeze or crackle. HEART: S1, S2, regular rate and rhythm. No loud murmur ABDOMEN: Distended and tender incision is currently intact EXTREMITIES: No edema of feet. SKIN: No rash, no masses palpable. NEUROLOGICAL: The patient is awake, alert, oriented x2, mood and affect normal. Results CBC & Chem 7: 07/23/19 08:52 07/23/19 08:52 Labs: Abnormal Lab Results - Last 24 Hours (Table) 07/23/19 07/23/19 07/23/19 Range/Units 08:07 08:52 08:52 RBC 2.67 L (4.30-5.90) m/uL Hgb 7.6 L (13.0-17.5) gm/dL Hct 23.8 L (39.0-53.0) % Lymphocytes # (Manual) 0.28 L (1.0-4.8) k/uL Metamyelocytes # (Man) 0.32 H (0) k/uL Myelocytes # (Manual) 0.14 H (0) k/uL Nucleated RBCs 2 H (0-0) /100 WBC Sodium 134 L (137-145) mmol/L Potassium 3.0 L (3.5-5.1) mmol/L Carbon Dioxide 21 L (22-30) mmol/L BUN 21 H (9-20) mg/dL Creatinine 1.65 H (0.66-1.25) mg/dL Glucose 188 H (74-99) mg/dL POC Glucose (mg/dL) 73 L (75-99) mg/dL Plasma Lactic Acid Xiang (0.7-2.0) mmol/L Calcium 6.0 L* (8.4-10.2) mg/dL Total Bilirubin 1.4 H (0.2-1.3) mg/dL Alkaline Phosphatase 29 L (38-126) U/L Total Protein 3.9 L (6.3-8.2) g/dL Albumin 1.6 L (3.5-5.0) g/dL 07/23/19 07/23/19 07/23/19 Range/Units 09:20 11:05 11:30 RBC (4.30-5.90) m/uL Hgb (13.0-17.5) gm/dL Hct (39.0-53.0) % Lymphocytes # (Manual) (1.0-4.8) k/uL Metamyelocytes # (Man) (0) k/uL Myelocytes # (Manual) (0) k/uL Nucleated RBCs (0-0) /100 WBC Sodium (137-145) mmol/L Potassium (3.5-5.1) mmol/L Carbon Dioxide (22-30) mmol/L BUN (9-20) mg/dL Creatinine (0.66-1.25) mg/dL Glucose (74-99) mg/dL POC Glucose (mg/dL) 137 H 102 H (75-99) mg/dL Plasma Lactic Acid Xiang 4.6 H* (0.7-2.0) mmol/L Calcium (8.4-10.2) mg/dL Total Bilirubin (0.2-1.3) mg/dL Alkaline Phosphatase (38-126) U/L Total Protein (6.3-8.2) g/dL Albumin (3.5-5.0) g/dL 07/23/19 07/23/19 07/23/19 Range/Units 15:50 15:51 17:10 RBC (4.30-5.90) m/uL Hgb (13.0-17.5) gm/dL Hct (39.0-53.0) % Lymphocytes # (Manual) (1.0-4.8) k/uL Metamyelocytes # (Man) (0) k/uL Myelocytes # (Manual) (0) k/uL Nucleated RBCs (0-0) /100 WBC Sodium (137-145) mmol/L Potassium (3.5-5.1) mmol/L Carbon Dioxide (22-30) mmol/L BUN (9-20) mg/dL Creatinine (0.66-1.25) mg/dL Glucose (74-99) mg/dL POC Glucose (mg/dL) 71 L 69 L (75-99) mg/dL Plasma Lactic Acid Xiang 3.1 H* (0.7-2.0) mmol/L Calcium (8.4-10.2) mg/dL Total Bilirubin (0.2-1.3) mg/dL Alkaline Phosphatase (38-126) U/L Total Protein (6.3-8.2) g/dL Albumin (3.5-5.0) g/dL Microbiology - Last 24 Hours (Table) 07/23/19 14:20 Wound Culture - Preliminary Abdomen 07/23/19 14:20 Anaerobic Culture - Preliminary Abdomen Assessment and Plan Assessment: 1--patient presented to the hospital with elective right colectomy this patient has been diagnosed with a right-sided colon tumor this patient now developing significant hypotension and tachycardia respiratory distress with abdominal distention and some drainage noticed by the nursing staff clinically high suspicious for possible bowel perforation and abdominal source for the sepsis will need to cover for the enteric gram-negative with a likely pathogen (1) Sepsis Status: Acute Code(s): A41.9 - SEPSIS, UNSPECIFIED ORGANISM SNOMED Code(s): 48046471 Plan: 1-blood cultures 2 stat 2-Zosyn 3.375 gm every 8 hours 3- IV fluid and pressor support 4- await CT of abdominal pelvis We will follow on clinical condition and cultures to further adjust medication if needed Thank you for this consultation will follow this patient with you Time with Patient: Greater than 30
--- NOTE | 2019-08-02 14:24 | P.OP ---
Date of Procedure: 07/16/19 Preoperative Diagnosis: Right colon cancer Postoperative Diagnosis: Right colon cancer Procedure(s) Performed: Right colectomy Partial omentectomy Repair of ventral hernia Anesthesia: MARLENA Surgeon: Jeremy Hernandez Estimated Blood Loss (ml): 300 Pathology: other (Right colon, omentum) Condition: stable Disposition: PACU Description of Procedure: Patient's placed on the operating table in the supine position. He received general anesthesia. His abdomen was prepped with sterile fashion. The abdomen was entered through a midline incision. Patient had evidence of a ventral hernia. The hernia was opened with opening of the fascia. This point the Bookwalter tract with wound. Patient had a large tumor located at the hepatic flexure. The right colon was then mobilized by dividing the white line of Toldt. The colon and transverse colon were mobilized. At this point the terminal ileum was transected with a GI stapler and then the proximal transverse colon was transected with a GI stapler. Using Enseal device the mesentery the bowel was divided. The specimens of pathology. A [id number] functional end-to-end staple anastomosis was then created using the LINDEN and TA stapler. A piece of nonviable omentum was divided with the Enseal device and sent to pathology. This point the abdomen was irrigated is no bleeding seen. The fascia was closed with looped #1 PDS suture. The fascial of the hernia was repaired during fascial closure. Skin was closed angelica.
--- NOTE | 2019-08-04 07:05 | CDI ---
Documentation Clarification Form Date: 08/04/2019 From: Facundo Araujo Phone: If you have a question about this query, please contact Maira Irizarry Gis Technician at [phone] between 8am and 5pm. Admit Date: 07/16/2019 Discharge Date: 07/23/2019 Patient Name: Lupillo Moulton Visit Number: [id number] ATTENTION: The Clinical Documentation Specialists (CDI) and [facility] Coding Staff appreciate your assistance in clarifying documentation. Please respond to the clarification below the line at the bottom and electronically sign. The CDI & [facility] Coding staff will review the response and follow-up if needed. Please note: Queries are made part of the Legal Health Record. If you have any questions, please contact the author of this message via ITS. Dear Jeremy Zamorano., The patient presented with the Right colon cancer. History/Risk Factors: Right Colectomy, colon cancer, SIADH WBC : 7.3. Blood cultures: Gram Negative Bacilli Gram Positive Cocci In Chains Vitals signs on admission: Temp 97.8 F 07/16/19 10:51 Pulse 85 07/16/19 10:51 Resp 18 07/16/19 10:51 BP 120/65 07/16/19 10:51 Pulse Ox 96 07/16/19 10:51 Treatment: Right Colectomy Antibiotics: Zosyn 3.375 gm every 8 hours IV Bolus: - IV fluid and pressor support Other: Septic shock 07/22 Rafaela Cordova MD Consult note stated "patient presented to the hospital with elective right colectomy this patient has been diagnosed with a right-sided colon tumor this patient now developing significant hypotension and tachycardia respiratory distress with abdominal distention and some drainage noticed bythe nursing staff clinically high suspicious for possible bowel perforation and abdominal source for the sepsis will need to cover for the enteric gram-negative with a likely pathogen. In your professional opinion, please clarify if these findings signify one of the following conditions, Sepsis Source and POA sepsis due to abdominal source bowel perforation after surgery Sepsis due other Present on Admission Yes No MTDD
--- NOTE | 2019-08-04 12:03 | CDI ---
Documentation Clarification Form Date: 08/04/2019 10:14:00 AM From: Terri Sewell RN, CCDS Admit Date: 07/16/2019 09:14:00 AM Patient Name: Lupillo Moulton Visit Number: [id number] Discharge Date: 07/23/2019 11:00:00 PM ATTENTION: The Clinical Documentation Specialists (CDI) and [facility] Coding Staff appreciate your assistance in clarifying documentation. Please respond to the clarification below the line at the bottom and electronically sign. The CDI & [facility] Coding staff will review the response and follow-up if needed. Please note: Queries are made part of the Legal Health Record. If you have any questions, please contact the author of this message via ITS. Dr. Jeremy Hernandez The patient has diabetes uncontrolled, as indicated in the Medical Consult and progress notes and requires further specificity. History/Risk Factors: DM2, ARF, Hyponatremia, Colon Cancer s/p right colectomy, possible pneumonia, sepsis this admission Clinical Indicators: 07/14-07/21 Blood Glucose: consistently 200-300 07/14 Medical consult (Janice): Type 2 diabetes mellitus patient's metformin and sulfonylurea will be discontinued rest of the oral hypoglycemic agents will be continued along with sliding scale. 07/17 Medical Progress Note: "Type 2 diabetes mellitus uncontrolled blood sugars, further management as mentioned above Lantus was added to his regimen." 07/22 Medical Progress Note: "-Type 2 diabetes mellitus uncontrolled blood sugars." Treatment: 07/16-07/22 Glucotrol 20 mg PO AC BID 07/14-07/22 Novolog Sliding Scale 07/17-07/21 Levimir 15 units SQ q HS In order to capture the severity of Illness and necessary documentation specificity, please clarify and also document in Summary: DM Type 2 with hyperglycemia (specify cause if known) Other, please specify Unable to Determine Please document any body system complications or specific manifestations related to the diabetes: Diabetic Nephropathy Diabetic Autonomic Neuropathy Diabetic Amyotrophy Diabetic Peripheral Vascular Disease Proliferative diabetic retinopathy with macular edema Diabetic foot ulcers, specify location Ketoacidosis Hypoglycemia with or without coma Hyperglycemia Hyperosmolarity Coma/nonketotic hyperglycemic-hyperosmolar coma Other condition (Last Revision: January 2017) Discharge summary addendum made MTDD
--- NOTE | 2019-08-04 14:38 | CDI ---
Documentation Clarification Form Date: 08/04/2019 01:35:00 PM From: Terri Sewell RN, CCDS Admit Date: 07/16/2019 09:14:00 AM Patient Name: Lupillo Moulton Visit Number: [id number] Discharge Date: 07/23/2019 11:00:00 PM ATTENTION: The Clinical Documentation Specialists (CDI) and [facility] Coding Staff appreciate your assistance in clarifying documentation. Please respond to the clarification below the line at the bottom and electronically sign. The CDI & [facility] Coding staff will review the response and follow-up if needed. Please note: Queries are made part of the Legal Health Record. If you have any questions, please contact the author of this message via ITS. Dr. Ahmet Villarreal History/Risk Factors: Right colon adenocarcinoma with right colectomy and sepsis with septic shock this admission, Cancer CVA, HTN Tobacco use: never Home oxygen: none Clinical Indicators: 07/22 Pulmonary: "Alert, pleasant 73-year-old gentleman, 100% nonrebreather in mild respiratory distress." 07/22 ID: "patient presented to the hospital with elective right colectomy this patient has been diagnosed with a right-sided colon tumor this patient now developing significant hypotension and tachycardia respiratory distress with abdominal distention and some drainage noticed by the nursing staff clinically high suspicious for possible bowel perforation and abdominal source for the sepsis. Elderly male lying in bed, no distress mild distress with tachypnea and excessive muscle respiration use. " 07/22 Pulmonary: "Dyspnea secondary to atelectasis secondary to above. CT angiogram ruled out pulmonary embolus. There is some tree and bud opacity in the right lower lobe most commonly related infectious bronchiolitis evidence of atelectasis." 07/22 0720 Vital signs: Temp 102.2, HR 125, rr 36 short of breath, shallow, tachypnea, B/P 81/43, spo2 86% on room air 07/22 Pulse oximetry: 91-100 on 100% NRB in ICU 07/22 Pulmonary Lung/Breathing assessment: "LUNGS: Equal air entry with few scattered rhonchi bilaterally." ABG/CBG: Not done Treatment: 07/22 1410 Patient transferred to ICU Continuous Pulse ox: per ICU Protocol O2: Room air, placed on 2l NC then to a 100% NRB- patient family requested he not be placed on mechanical ventilator In your professional opinion, can you please clarify if these findings signify one of the following conditions? Acute Hypoxic Respiratory Failure Acute Hypercapnic Respiratory Failure Other Diagnosis, please specify Unable to determine (Last Query Form Revision: December 2018) Acute Hypoxic Respiratory Failure MTDD
--- NOTE | 2019-08-04 14:58 | CDI ---
Documentation Clarification Form Date: 08/04/2019 02:40:09 PM From: Terri Sewell RN, CCDS Admit Date: 07/16/2019 09:14:00 AM Patient Name: Lupillo Moulton Visit Number: [id number] Discharge Date: 07/23/2019 11:00:00 PM ATTENTION: The Clinical Documentation Specialists (CDI) and [facility] Coding Staff appreciate your assistance in clarifying documentation. Please respond to the clarification below the line at the bottom and electronically sign. The CDI & [facility] Coding staff will review the response and follow-up if needed. Please note: Queries are made part of the Legal Health Record. If you have any questions, please contact the author of this message via ITS. Dr. Ahmet Villarreal Covid-19 testing was documented but requires documentation of result for clinical significance to accurately reflect patient SOI/ROM. Patient history/risk factors: DM2, cancerous mass of hepatic flexure, melanoma Clinical Indicators: 07/22 Pulmonary progress note: "COVID 19 testing sent today. Dyspnea secondary to atelectasis secondary to above. CT angiogramruled out pulmonary embolus. There is some tree and bud opacity in the right lower lobe most commonly related infectious bronchiolitis evidence of atelectasis. This patient got transferred to the intensive care unit. The patient became hypotensive and tachycardic and he became progressively more short of breath. By the time of his arrival to the ICU, the patient was found to be in shock." 07/22 CXR:"1.Clinical consideration for pneumoperitoneum is recommended. CT chest abdomen and pelvis is currently scheduled. Suggestion of mild bibasilar atelectasis. Viral panel: 07/22 Influenza A&B: Negative, Coronavirus PCR: Negative, RSV PCR: Negative ABGs: not done 07/22 0720 Vital Signs: Temp 102.2, HR 125, RR 36, B/P 81/43, Spo2 86% RA Treatment: Consult: Pulmonary and ID Vanco 1750mg IVPB Q 24 hrs 07/22 4L 0.9% NS IVF Bolus In order to capture the severity of condition, please clarify if the above treatment/clinical indicators signify: COVID-19 ruled out Other, please specify Unable to determine (Last Form Revision: June 2019) COVID-19 ruled out MTDD
--- NOTE | 2019-08-04 15:18 | CDI ---
Documentation Clarification Form Date: 08/04/2019 03:00:40 PM From: Terri Sewell RN, CCDS Admit Date: 07/16/2019 09:14:00 AM Patient Name: Lupillo Moulton Visit Number: [id number] Discharge Date: 07/23/2019 11:00:00 PM ATTENTION: The Clinical Documentation Specialists (CDI) and [facility] Coding Staff appreciate your assistance in clarifying documentation. Please respond to the clarification below the line at the bottom and electronically sign. The CDI & [facility] Coding staff will review the response and follow-up if needed. Please note: Queries are made part of the Legal Health Record. If you have any questions, please contact the author of this message via ITS. Dr. Ahmet Villarreal Possible Pneumonia was documented in your notes from 07/18-07/22 and requires further specificity. History/Risk Factors: 07/15 Right colectomy Clinical Indicators: 07/18-07/22 Pulmonary Consult and Progress notes: "Pneumonia or atypical infection is within the differential." 07/22 Medical: "Pneumonia or atypical infection is within the differential." 07/22 ID:" patient did have CT angiogram that was negative for PE the consult for possible right lower lobe pneumonia pulmonary saw the patient and the patient was started on antibiotic therapy for possible pneumonia today." Negative viral panel 07/22 0720 Vital signs: Temp 102.2, HR 125, RR 36, B/P 81/43, Spo2 86% ra 07/15-07/22 WBC: 15.1/14.4/13.2/3.5/6.9/8/4.6 07/15-07/22 Left shift: 13.8/13.4/12.6/6.3/7.1 07/22 CXR:"Clinical consideration for pneumoperitoneum is recommended. CT chest abdomen and pelvis is currently scheduled. Suggestion of mild bibasilar atelectasis." 07/22 Pulmonary Lung/Breathing assessment: Equal air entry with few scattered rhonchi bilaterally." Treatment: Antibiotics: IV Vanco 1750mg IVPB Q 24 hrs O2: Room air, increased to 2L NC, increased to 100% NRB Breathing TX: none In order to capture the severity of condition, please clarify if the condition signifies and you are treating for: Pneumonia Ruled in Pneumonia ruled out Specify type Aspiration Pneumonia, identify if: Due to solids or liquids Bacterial Pneumonia, specify causal organism (if known) Gram Negative Pneumonia Due to Strep Due to Staph Due to E. coli Other bacteria (please specify) Other, please specify Unable to determine Also include Expected after surgical procedure Unexpected after surgical procedure Inherent to surgical procedure (Last Revision: July 2017) No pneumonia MTDD
--- NOTE | 2019-08-04 15:33 | CDI ---
Documentation Clarification Form Date: 08/04/2019 03:19:46 PM From: Terri Sewell RN, CCDS Admit Date: 07/16/2019 09:14:00 AM Patient Name: Lupillo Moulton Visit Number: [id number] Discharge Date: 07/23/2019 11:00:00 PM ATTENTION: The Clinical Documentation Specialists (CDI) and [facility] Coding Staff appreciate your assistance in clarifying documentation. Please respond to the clarification below the line at the bottom and electronically sign. The CDI & [facility] Coding staff will review the response and follow-up if needed. Please note: Queries are made part of the Legal Health Record. If you have any questions, please contact the author of this message via ITS. Dr. Jeremy Hernandez Please clarify clinically appropriate diagnosis to accurately reflect the patient SOI/ROM. Patients Admitting Diagnosis: Right Colon Cancer Post-Operative Diagnosis: Right Colon Cancer Procedure performed: Right Colectomy, Partial Omentectomy, Repair of ventral hernia History/Risk Factors: Colon cancer, melanoma, HTN Clinical Indicators: 4/3 Surgical Progress Note: "I believe there is a perforation somewhere in the GI tract." 4/3 ID: "patient presented to the hospital with elective right colectomy this patient has been diagnosed with a right-sided colon tumor this patient now developing significant hypotension and tachycardia respiratory distress with abdominal distention and some drainage noticed by the nursing staff clinically high suspicious for possible bowel perforation and abdominal source for the sepsis will need to cover for the enteric gram-negative with a likely pathogen." 4/3 CT AP: INTERVAL PARTIAL RIGHT HEMICOLECTOMY COMPLICATED BY ANASTOMOTIC LEAK EXTENDING FIRST POSTERIORLY AND THEN SUPERIORLY ALLOWING FOR MODERATE FREE AIR AND MODERATE ABDOMINOPELVIC ASCITES." Treatment: Consults: ID, Pulmonary, and Medical Iv Vanco 1750 mg IVPB Q 24 hrs 4/3Ll 0.9% NS IVF Bolus In order to accurately reflect this patients severity of illness and risk or mortality, please clarify if the appropriate clinical diagnosis Anastomotic leak Bowel Perforation Other (please specify) Unable to determine Also include -has been ruled out -is a complication of surgical procedure -is an expected outcome of the surgical procedure -is related to co-morbid condition(s) of -Other please specify -Unable to determine (Last Revision: May 2019) Anastomotic leak. Complications surgical procedure MTDD
--- NOTE | 2019-08-11 13:57 | P.DS ---
Providers Date of admission: 07/16/19 09:14 Expected date of discharge: 07/23/19 Attending physician: Jeremy Hernandez Consults: 07/15/19 10:00 Consult Physician Routine Consulting Provider: Ben Bejarano Consult Reason/Comments: Medical management Do you want consulting provider notified?: Yes 07/18/19 19:14 Consult Physician Routine Consulting Provider: Nirav Hagan Consult Reason/Comments: abnormal CTA Do you want consulting provider notified?: Already Contacted 07/23/19 12:46 Consult Physician Routine Consulting Provider: Rafaela Naylor Consult Reason/Comments: sepsis Do you want consulting provider notified?: Yes Primary care physician: Nirav Donny [facility] Course: 73-year-old male who underwent right colectomy, partial omentectomy, and repair of ventral hernia secondary to right colon cancer on 07/16/2019. The patient was doing well postoperatively until 07/23/2019 when he developed hypotension and fever. He was transferred to the intensive care unit. He underwent a computed tomography scan revealing evidence of free air and traversing he believed there was a perforation somewhere in the GI tract. He recommended exploratory laparotomy. However patient's did not wish to undergo any further operative intervention. The patient was made a DO NOT RESUSCITATE. The patient on 07/23/2019. Please see EMR for further hospital course details. Discharge diagnosis Right colon cancer, status post right colectomy, partial omentectomy and repair of ventral hernia Suspected bowel perforation, an unexpected but potential outcome of surgery Nurse practitioner note has been reviewed by physician. Signing provider agrees with the documented findings, assessment, and plan of care. Plan - Discharge Summary Discharge Rx Participant: No New Discharge Prescriptions: New Hydrocodone/Acetaminophen [Nada 5-325] 1 tab PO Q6HR PRN #10 tab PRN Reason: Pain Benzocaine/Menthol Lozeng [Cepacol lozenge] 1 each MUCOUS MEM Q1HR PRN lozenge PRN Reason: Sore Throat Tamsulosin [Flomax] 0.4 mg PO PC-BRKFST cap.er.24h Insulin Detemir (Levemir) [Levemir] 15 unit SQ HS syr Metoprolol Tartrate [Lopressor] 50 mg PO BID tab INSULIN ASPART (NovoLOG) [NovoLOG (formulary)] 0 unit SQ ACHS vial Acetaminophen Tab [Tylenol] 650 mg PO Q4HR PRN tab PRN Reason: Fever and/ or Mild Pain Continue Aspirin 81 mg PO DAILY QUEtiapine FUMARATE 50 mg PO HS amLODIPine [Norvasc] 5 mg PO DAILY Lisinopril [Zestril] 40 mg PO DAILY sitaGLIPtin [Januvia] 100 mg PO DAILY metFORMIN HCL 1,000 mg PO BID glyBURIDE [Diabeta] 10 mg PO AC-BID Discharge Medication List Aspirin 81 mg PO DAILY 07/14/19 [History] Lisinopril [Zestril] 40 mg PO DAILY 07/14/19 [History] QUEtiapine FUMARATE 50 mg PO HS 07/14/19 [History] amLODIPine [Norvasc] 5 mg PO DAILY 07/14/19 [History] glyBURIDE [Diabeta] 10 mg PO AC-BID 07/14/19 [History] metFORMIN HCL 1,000 mg PO BID 07/14/19 [History] sitaGLIPtin [Januvia] 100 mg PO DAILY 07/14/19 [History] Hydrocodone/Acetaminophen [Nada 5-325] 1 tab PO Q6HR PRN #10 tab 07/16/19 [Rx] Acetaminophen Tab [Tylenol] 650 mg PO Q4HR PRN tab 07/21/19 [Rx] Benzocaine/Menthol Lozeng [Cepacol lozenge] 1 each MUCOUS MEM Q1HR PRN lozenge 07/21/19 [Rx] INSULIN ASPART (NovoLOG) [NovoLOG (formulary)] 0 unit SQ ACHS vial 07/21/19 [Rx] Insulin Detemir (Levemir) [Levemir] 15 unit SQ HS syr 07/21/19 [Rx] Metoprolol Tartrate [Lopressor] 50 mg PO BID tab 07/21/19 [Rx] Tamsulosin [Flomax] 0.4 mg PO PC-BRKFST cap.er.24h 07/21/19 [Rx] Follow up Appointment(s)/Referral(s): [facility] Visiting Nurse, [NON-STAFF] - 1 Week Jeremy Hernandez MD [STAFF PHYSICIAN] - 1 Week Activity/Diet/Wound Care/Special Instructions: Patient is going to [place] Activity until tolerated continue current diet Continue monitoring blood sugars before meals and at bedtime and treat accordingly with sliding scale Discharge Disposition: - Preliminary Cause of Preliminary Cause of : sepsis
== END 2019-07-23 23:00 | disposition expired | DRG 329 ==
LOC: ORWHC2ENDO 08:20 → 4SSUR 09:37 → ORWHC2ENDO 07-16 09:14 → 4SSUR 07-16 09:14 → 5NMEDONC 07-16 11:46 → 3SCARD 07-23 11:38 → 2SICU 07-23 13:21
PROVIDERS: ADMIT Surgery; ATTEND Surgery
PROC: 0DBL8ZX Excision of Transverse Colon, Via Natural or Artificial Opening Endoscopic, Diagnostic (ICD-10-PCS; 2019-07-15 09:00)
PROC: 0DTF0ZZ Resection of Right Large Intestine, Open Approach (ICD-10-PCS; principal; 2019-07-16 12:10)
PROC: 0DBU0ZZ Excision of Omentum, Open Approach (ICD-10-PCS; principal; 2019-07-16 12:10)
PROC: 0WQF0ZZ Repair Abdominal Wall, Open Approach (ICD-10-PCS; principal; 2019-07-16 12:10)
PROC: 4A133B1 Monitoring of Arterial Pressure, Peripheral, Percutaneous Approach (ICD-10-PCS; 2019-07-23)
PROC: 4A133J1 Monitoring of Arterial Pulse, Peripheral, Percutaneous Approach (ICD-10-PCS; 2019-07-23)
PROC: 02HV33Z Insertion of Infusion Device into Superior Vena Cava, Percutaneous Approach (ICD-10-PCS; 2019-07-23)
DX: C18.9 Malignant neoplasm of colon, unspecified (principal); R65.21 Severe sepsis with septic shock; A41.9 Sepsis, unspecified organism; J96.01 Acute respiratory failure with hypoxia; D62 Acute posthemorrhagic anemia; N17.9 Acute kidney failure, unspecified; J98.11 Atelectasis; E22.2 Syndrome of inappropriate secretion of antidiuretic hormone; K91.89 Other postprocedural complications and disorders of digestive system; E87.5 Hyperkalemia; E86.0 Dehydration; H91.90 Unspecified hearing loss, unspecified ear; I25.10 Atherosclerotic heart disease of native coronary artery without angina pectoris; Z66 Do not resuscitate; E11.65 Type 2 diabetes mellitus with hyperglycemia; Z20.828 Contact with and (suspected) exposure to other viral communicable diseases; I11.9 Hypertensive heart disease without heart failure; R33.9 Retention of urine, unspecified; K43.9 Ventral hernia without obstruction or gangrene; E87.6 Hypokalemia; R00.0 Tachycardia, unspecified; Z96.1 Presence of intraocular lens; Z90.49 Acquired absence of other specified parts of digestive tract; Z98.42 Cataract extraction status, left eye; Z98.41 Cataract extraction status, right eye; Z80.9 Family history of malignant neoplasm, unspecified; Z79.82 Long term (current) use of aspirin; Z79.84 Long term (current) use of oral hypoglycemic drugs; Z79.899 Other long term (current) drug therapy; Z86.73 Personal history of transient ischemic attack (TIA), and cerebral infarction without residual deficits; Z85.820 Personal history of malignant melanoma of skin
CPT/HCPCS: 44404; 45380; 71045; 71250; 71275; 74176; 80048; 80053; 82378; 83605; 84443; 85025; 85027; 85379; 86850; 86900; 86901; 87040; 87070; 87075; 87205; 87502; 87634; 87635; 88305; 88309; 93005